=== PATIENT | female | born 1960 | race Caucasian/White ===

== ENCOUNTER 2018-04-21 19:19 | Inpatient (IN) ==
[2018-04-21] MEDS ORDERED: methylPREDNISolone SOD SUC 125 MG/2 ML VIAL IV STA (19:51)
[2018-04-21] MEDS ORDERED: ALBUTEROL/IPRATROPIUM 3 ML NEB RESP TX STA (19:51)
[2018-04-21] MEDS ORDERED: LEVOFLOXACIN INJ 750 MG in PREMIX 1 EACH IV STA (19:51)
[2018-04-21] MEDS ORDERED: ONDANSETRON 4 MG/2 ML VIAL IV STA (19:51)
[2018-04-21 20:16] LABS: Basophils # 0.1 10*3/uL (0.0-0.2); Basophils % 0.3 % (0.0-0.8); Hematocrit 38.6 VOL% (35.7-47.0); Hemoglobin 12.5 GM/DL (12.0-16.0); Immature Granulocytes % 5.3 %; Immature Granulocytes Absolute 2.34 #; Lymphocytes % 2.2 % (21.3-54.2); Mean Corpuscular HGB Conc 32.4 GM/DL (32-36); Mean Corpuscular Hemoglobin 32 PG (27-34); Mean Corpuscular Volume 99.7 FL (87-102); Mean Platelet Volume 11.6 FL (9.6-12.0); Monocytes # 1.6 10*3/uL (0.11-0.8); Monocytes % 3.7 % (1.7-12.7); Neutrophils # 39.4 10*3/uL (1.4-7.4); Neutrophils % 88.5 % (38.7-73.9); Platelet Count 308 T/CUMM (130-400); Red Blood Count 3.87 MC/CUMM (3.8-5.5); Red Cell Distribution Width 14.2 % (9.3-17.3)
[2018-04-21 20:20] LABS: White Blood Count 44.5 T/CUMM (4-12)
[2018-04-21 20:33] LABS: INR 1.2; PT Patient Result 12.8 SECS; Partial Thromboplastin Time 29.7 SECS (0-40)
[2018-04-21 20:34] LABS: Alanine Aminotransferase 37 U/L (13-56); Albumin 2.7 G/DL (3.4-5.0); Alkaline Phosphatase 162 U/L (45-117); Aspartate Amino Transferase 24 U/L (0-37); Blood Urea Nitrogen 20 MG/DL (7-18); Calcium 9.7 MG/DL (8.5-10.1); Glucose 97 MG/DL (74-106); Osmolality,Calculated 279.5 MOS/KG (273-304); Potassium 3.9 MMOL/L (3.5-5.1); Sodium 139 MMOL/L (136-145); Total Protein 7.5 G/DL (6.4-8.3); Troponin I < 0.015 NG/ML (0.00-0.045)
[2018-04-21 20:37] LABS: Apearance,Urine Slightly Hazy (Clear); Bacteria,Urine Moderate /HPF (Few); Bilirubin,Urine Negative (Negative); Blood, Urine Small mg/dL (Negative); Glucose,Urine (UA) Negative (Negative); Ketones,Urine 5 mg/dL (Negative); Mucus,Urine Few /LPF (Occasional); Nitrite,Urine Negative (Negative); Protein,Urine 100 MG/DL; Squamous Epithelial Cell,Urine Occasional /HPF (0-10); Urine Color Yellow (Yellow); Urine Specific Gravity 1.015 (1.001-1.035); Urine Urobilinogen < 2.0 EU/DL (0.2-1.0); WBC,Urine 5 /HPF (0-6)
[2018-04-21 20:40] LABS: Barbiturates Screen,Urine Negative (Negative); Benzodiazepines Screen,Urine Positive (Negative); Cannabinoid Screen,Urine Positive (Negative); Opiate Screen,Urine Negative (Negative); Phencyclidine Screen,Urine Negative (Negative)
[2018-04-21 21:18] LABS: Band Neutrophils 9 % (0-10); Lymphocytes 2 % (20-55); Metamyelocytes 2 %; Platelet Estimate Normal; Segmented Neutrophils 83 % (50-85); Total Cells Counted 100
[2018-04-21] MEDS ORDERED: NICOTINE 21 MG/24 HR PATCH TRANSDERM PRN (23:03)
[2018-04-21] MEDS ORDERED: ACETAMINOPHEN 325 MG TABLET PO PRN (23:03)
[2018-04-21] MEDS ORDERED: SODIUM CHLORIDE 0.9% 1,000 ML IV ONE (23:03)
[2018-04-21] MEDS ORDERED: NOREPINEPHRINE 8 MG in SODIUM CHLORIDE 0.9% 242 ML IV PRN (23:03)
[2018-04-21] MEDS ORDERED: diphenhydrAMINE CAP 25 MG CAPSULE PO PRN (23:03)
[2018-04-21] MEDS ORDERED: PROMETHAZINE 25 MG/1 ML VIAL IM PRN (23:03)
[2018-04-21] MEDS ORDERED: ALBUTEROL/IPRATROPIUM 3 ML NEB RESP TX PRN (23:03)
[2018-04-21] MEDS ORDERED: ONDANSETRON 4 MG/2 ML VIAL IV PRN (23:03)
[2018-04-21] MEDS ORDERED: ALBUTEROL 2.5 MG/3 ML NEB RESP TX PRN (23:03)
[2018-04-21] MEDS ORDERED: VANCOMYCIN 1,000 MG VIAL ONE (23:27)
[2018-04-21] MEDS ORDERED: HEPARIN DRIP 25,000 UNITS/500 ML PREMIX IV SCH (23:30)
[2018-04-22] MEDS ORDERED: VANCOMYCIN INJ 500 MG in SODIUM CHLORIDE 0.9% 100 ML IV SCH
[2018-04-22] MEDS: AZITHROMYCIN INJ 500 MG in SODIUM CHLORIDE 0.9% 250 ML IV SCH ×2 (00:10→23:57)
[2018-04-22] MEDS: PANTOPRAZOLE 40 MG VIAL IV SCH ×3 (00:22→20:12)
[2018-04-22 00:54] LABS: Apearance,Urine Slightly Hazy (Clear); Bilirubin,Urine Negative (Negative); Blood, Urine Small mg/dL (Negative); Glucose,Urine (UA) Negative (Negative); Hyaline Casts,Urine 3 /LPF (0-3); Ketones,Urine Negative (Negative); Mucus,Urine Few /LPF (Occasional); Nitrite,Urine Negative (Negative); Protein,Urine 100 MG/DL; RBC,Urine 4 /HPF (0-4); Renal Epithelial Cells,Urine Occasional /HPF (<1); Squamous Epithelial Cell,Urine Occasional /HPF (0-10); Urine Color Yellow (Yellow); Urine Specific Gravity 1.017 (1.001-1.035); Urine Urobilinogen < 2.0 EU/DL (0.2-1.0); WBC,Urine 4 /HPF (0-6)
[2018-04-22] MEDS: PIPERACILLIN/TAZOBACTAM 3,375 MG in SODIUM CHLORIDE 0.9% 100 ML IV SCH ×3 (03:05→17:22)
[2018-04-22] MEDS: SODIUM CHLORIDE 0.9% 1,000 ML IV SCH ×2 (03:45→14:12)
[2018-04-22 04:28] LABS: Basophils # 0.1 10*3/uL (0.0-0.2); Basophils % 0.3 % (0.0-0.8); Hematocrit 31.8 VOL% (35.7-47.0); Hemoglobin 10.5 GM/DL (12.0-16.0); Immature Granulocytes % 7.8 %; Immature Granulocytes Absolute 3.57 #; Lymphocytes # 1.1 10*3/uL (1.4-4.0); Lymphocytes % 2.5 % (21.3-54.2); Mean Corpuscular Hemoglobin 32 PG (27-34); Mean Corpuscular Volume 95.5 FL (87-102); Mean Platelet Volume 11.5 FL (9.6-12.0); Monocytes # 1.2 10*3/uL (0.11-0.8); Monocytes % 2.6 % (1.7-12.7); Neutrophils # 39.7 10*3/uL (1.4-7.4); Neutrophils % 86.8 % (38.7-73.9); Platelet Count 210 T/CUMM (130-400); Red Blood Count 3.33 MC/CUMM (3.8-5.5)
[2018-04-22 04:40] LABS: White Blood Count 45.7 T/CUMM (4-12)
[2018-04-22 04:56] LABS: Alanine Aminotransferase 27 U/L (13-56); Albumin 2.1 G/DL (3.4-5.0); Alkaline Phosphatase 120 U/L (45-117); Aspartate Amino Transferase 16 U/L (0-37); Blood Urea Nitrogen 21 MG/DL (7-18); Calcium 8.3 MG/DL (8.5-10.1); Glucose 120 MG/DL (74-106); Osmolality,Calculated 282.4 MOS/KG (273-304); Potassium 3.5 MMOL/L (3.5-5.1); Sodium 140 MMOL/L (136-145)
[2018-04-22 05:16] LABS: Band Neutrophils 14 % (0-10); Lymphocytes 3 % (20-55); Metamyelocytes 8 %; Ovalocytes 1+; Platelet Estimate Normal; Segmented Neutrophils 71 % (50-85); Total Cells Counted 100
[2018-04-22 05:53] LABS: Lactic Acid 2.9 MMOL/L (0.4-2.0)
[2018-04-22] MEDS ORDERED: MAGNESIUM SULF RIDER 4 GM in PREMIX 1 EACH IV PRN (06:40)
[2018-04-22] MEDS: MAGNESIUM SULF RIDER 2 GM in PREMIX 1 EACH IV PRN ×2 (07:11→09:12)
[2018-04-22] MEDS ORDERED: DESVENLAFAXINE 50 MG PO SCH (09:00)
[2018-04-22] MEDS ORDERED: [UNRECOGNIZED DRUG - OTHER] PO SCH (09:00)
[2018-04-22] MEDS ORDERED: NON-FORMULARY MEDICATION (Potassium [Potassium] 99 MG) PO SCH (09:00)
[2018-04-22 09:16] LABS: Allen Test Positive
[2018-04-22 09:21] LABS: ABG Base Excess -9.2 MMOL/L (-2.5-2.5); ABG HCO3 12.4 MMOL/L (20-26); ABG Oxygen Saturation 97.7 % (95-100); ABG PH 7.429 (7.35-7.45)
[2018-04-22 09:29] LABS: ABG PCO2 19.2 MM HG (35-48)
[2018-04-22] MEDS: levETIRAcetam 500 MG TABLET PO SCH ×2 (10:05→20:13)
[2018-04-22] MEDS: GABAPENTIN 300 MG CAPSULE PO SCH ×3 (10:05→20:12)
[2018-04-22] MEDS: DIVALPROEX 500 MG TABLET PO SCH ×2 (10:05→20:12)
[2018-04-22] MEDS: ALPRAZolam 0.25 MG TABLET PO SCH ×2 (10:06→20:12)
[2018-04-22] MEDS: LIDOCAINE 5% PATCH TRANSDERM SCH (10:14)
[2018-04-22] MEDS: MIRTAZAPINE 15 MG TABLET PO SCH (20:13)
[2018-04-22] MEDS: VANCOMYCIN INJ 750 MG in SODIUM CHLORIDE 0.9% 250 ML IV SCH (21:56)
[2018-04-23] MEDS: PIPERACILLIN/TAZOBACTAM 3,375 MG in SODIUM CHLORIDE 0.9% 100 ML IV SCH ×3 (02:27→17:01)
[2018-04-23 05:37] LABS: Basophils # 0.1 10*3/uL (0.0-0.2); Basophils % 0.3 % (0.0-0.8); Hematocrit 29.1 VOL% (35.7-47.0); Hemoglobin 9.5 GM/DL (12.0-16.0); Immature Granulocytes Absolute 3.57 #; Lymphocytes # 0.9 10*3/uL (1.4-4.0); Lymphocytes % 2.3 % (21.3-54.2); Mean Corpuscular HGB Conc 32.6 GM/DL (32-36); Mean Corpuscular Hemoglobin 32 PG (27-34); Mean Platelet Volume 12.3 FL (9.6-12.0); Monocytes # 0.9 10*3/uL (0.11-0.8); Monocytes % 2.3 % (1.7-12.7); Neutrophils % 86.1 % (38.7-73.9); Platelet Count 174 T/CUMM (130-400); Red Cell Distribution Width 14.4 % (9.3-17.3); White Blood Count 39.5 T/CUMM (4-12)
[2018-04-23 05:58] LABS: Albumin 1.8 G/DL (3.4-5.0); Calcium 8.3 MG/DL (8.5-10.1); Osmolality,Calculated 291.6 MOS/KG (273-304); Potassium 3.4 MMOL/L (3.5-5.1)
[2018-04-23 06:32] LABS: Band Neutrophils 7 % (0-10); Lymphocytes 1 % (20-55); Segmented Neutrophils 86 % (50-85); Total Cells Counted 100
[2018-04-23 06:33] LABS: Burr Cells Slight; Hypochromasia Slight; Macrocytosis Slight
[2018-04-23 06:34] LABS: Platelet Estimate Adequate
[2018-04-23] MEDS: SODIUM CHLORIDE 0.9% 1,000 ML IV SCH ×3 (07:33→23:16)
[2018-04-23] MEDS: levETIRAcetam 500 MG TABLET PO SCH ×2 (08:56→21:02)
[2018-04-23] MEDS: GABAPENTIN 300 MG CAPSULE PO SCH ×3 (08:57→21:02)
[2018-04-23] MEDS: DIVALPROEX 500 MG TABLET PO SCH ×2 (08:57→21:02)
[2018-04-23] MEDS: ALPRAZolam 0.25 MG TABLET PO SCH ×2 (08:57→21:03)
[2018-04-23] MEDS: LIDOCAINE 5% PATCH TRANSDERM SCH ×2 (08:57→14:02)
[2018-04-23] MEDS: PANTOPRAZOLE 40 MG VIAL IV SCH ×2 (08:57→21:00)
[2018-04-23] MEDS: POTASSIUM CHLORIDE 20 MEQ TABLET PO PRN ×3 (14:02→18:56)
[2018-04-23] MEDS: VANCOMYCIN INJ 750 MG in SODIUM CHLORIDE 0.9% 250 ML IV SCH ×2 (20:59→23:56)
[2018-04-23] MEDS: MIRTAZAPINE 15 MG TABLET PO SCH (21:02)
[2018-04-23] MEDS: AZITHROMYCIN INJ 500 MG in SODIUM CHLORIDE 0.9% 250 ML IV SCH (23:30)
[2018-04-24] MEDS: PIPERACILLIN/TAZOBACTAM 3,375 MG in SODIUM CHLORIDE 0.9% 100 ML IV SCH ×3 (01:03→17:00)
[2018-04-24 01:17] LABS: Basophils # 0.1 10*3/uL (0.0-0.2); Basophils % 0.2 % (0.0-0.8); Hematocrit 29.2 VOL% (35.7-47.0); Hemoglobin 9.8 GM/DL (12.0-16.0); Immature Granulocytes % 1.6 %; Immature Granulocytes Absolute 0.63 #; Lymphocytes # 1.9 10*3/uL (1.4-4.0); Lymphocytes % 4.8 % (21.3-54.2); Mean Corpuscular HGB Conc 33.6 GM/DL (32-36); Mean Corpuscular Hemoglobin 32 PG (27-34); Mean Corpuscular Volume 95.4 FL (87-102); Mean Platelet Volume 12.2 FL (9.6-12.0); Monocytes % 2.7 % (1.7-12.7); Neutrophils % 90.7 % (38.7-73.9); Platelet Count 170 T/CUMM (130-400); Red Blood Count 3.06 MC/CUMM (3.8-5.5); Red Cell Distribution Width 14.4 % (9.3-17.3); White Blood Count 38.6 T/CUMM (4-12)
[2018-04-24 01:45] LABS: Band Neutrophils 6 % (0-10); Lymphocytes 3 % (20-55); Platelet Estimate Normal; Segmented Neutrophils 89 % (50-85); Total Cells Counted 100
[2018-04-24 01:51] LABS: Albumin 1.8 G/DL (3.4-5.0); Bilirubin,Total 0.4 MG/DL (0.2-1.0); Calcium 8.2 MG/DL (8.5-10.1); Osmolality,Calculated 288.7 MOS/KG (273-304); Potassium 3.4 MMOL/L (3.5-5.1); Total Protein 5.4 G/DL (6.4-8.3)
[2018-04-24] MEDS: LIDOCAINE 5% PATCH TRANSDERM SCH ×2 (08:07→08:16)
[2018-04-24] MEDS: GABAPENTIN 300 MG CAPSULE PO SCH ×3 (08:08→20:06)
[2018-04-24] MEDS: POTASSIUM CHLORIDE 20 MEQ TABLET PO PRN ×3 (08:08→13:21)
[2018-04-24] MEDS: DIVALPROEX 500 MG TABLET PO SCH ×2 (08:09→20:06)
[2018-04-24] MEDS: levETIRAcetam 500 MG TABLET PO SCH ×2 (08:09→20:06)
[2018-04-24] MEDS: ALPRAZolam 0.25 MG TABLET PO SCH ×2 (08:09→20:06)
[2018-04-24] MEDS: PANTOPRAZOLE 40 MG VIAL IV SCH ×2 (08:44→20:05)
[2018-04-24] MEDS: SODIUM CHLORIDE 0.9% 1,000 ML IV SCH ×3 (10:48→22:39)
[2018-04-24] MEDS: VANCOMYCIN INJ 750 MG in SODIUM CHLORIDE 0.9% 250 ML IV SCH ×2 (12:15→23:10)
[2018-04-24] MEDS: MAGNESIUM SULF RIDER 2 GM in PREMIX 1 EACH IV PRN (13:21)
[2018-04-24] MEDS: MIRTAZAPINE 15 MG TABLET PO SCH (20:06)
[2018-04-25] MEDS: AZITHROMYCIN INJ 500 MG in SODIUM CHLORIDE 0.9% 250 ML IV SCH (00:56)
[2018-04-25] MEDS: PIPERACILLIN/TAZOBACTAM 3,375 MG in SODIUM CHLORIDE 0.9% 100 ML IV SCH ×2 (02:35→11:08)
[2018-04-25] MEDS: SODIUM CHLORIDE 0.9% 1,000 ML IV SCH ×3 (05:39→16:49)
[2018-04-25 06:18] LABS: Basophils # 0.1 10*3/uL (0.0-0.2); Basophils % 0.5 % (0.0-0.8); Eosinophils % 0.2 % (0.00-10.9); Hematocrit 33.5 VOL% (35.7-47.0); Hemoglobin 11.3 GM/DL (12.0-16.0); Immature Granulocytes % 4.9 %; Lymphocytes # 1.6 10*3/uL (1.4-4.0); Lymphocytes % 11.1 % (21.3-54.2); Mean Corpuscular HGB Conc 33.7 GM/DL (32-36); Mean Corpuscular Hemoglobin 32 PG (27-34); Mean Corpuscular Volume 94.9 FL (87-102); Mean Platelet Volume 12.3 FL (9.6-12.0); Monocytes # 1.4 10*3/uL (0.11-0.8); Monocytes % 9.6 % (1.7-12.7); NRBC # 0.02 10*3/uL; Neutrophils # 10.5 10*3/uL (1.4-7.4); Neutrophils % 73.7 % (38.7-73.9); Platelet Count 168 T/CUMM (130-400); Red Blood Count 3.53 MC/CUMM (3.8-5.5); Red Cell Distribution Width 14.2 % (9.3-17.3); White Blood Count 14.3 T/CUMM (4-12)
[2018-04-25 06:38] LABS: Calcium 8.7 MG/DL (8.5-10.1); Osmolality,Calculated 276.3 MOS/KG (273-304); Potassium 3.6 MMOL/L (3.5-5.1)
[2018-04-25 06:47] LABS: Band Neutrophils 1 % (0-10); Hypochromasia 1+; Lymphocytes 9 % (20-55); Ovalocytes Slight; Platelet Estimate Normal; Segmented Neutrophils 83 % (50-85); Total Cells Counted 100
[2018-04-25] MEDS: levETIRAcetam 500 MG TABLET PO SCH ×2 (08:59→20:56)
[2018-04-25] MEDS: DIVALPROEX 500 MG TABLET PO SCH ×2 (08:59→20:56)
[2018-04-25] MEDS: LIDOCAINE 5% PATCH TRANSDERM SCH ×2 (08:59)
[2018-04-25] MEDS: GABAPENTIN 300 MG CAPSULE PO SCH ×3 (08:59→20:57)
[2018-04-25] MEDS: ALPRAZolam 0.25 MG TABLET PO SCH ×2 (08:59→20:57)
[2018-04-25] MEDS: MAGNESIUM SULF RIDER 2 GM in PREMIX 1 EACH IV PRN (09:05)
[2018-04-25] MEDS: AZITHROMYCIN 250 MG TABLET PO SCH (09:15)
[2018-04-25] MEDS: cefTRIAXone 1,000 MG in SYRINGE 1 EACH IV SCH (16:49)
[2018-04-25] MEDS: MIRTAZAPINE 15 MG TABLET PO SCH (20:56)
[2018-04-25] MEDS: KETOROLAC 15 MG/1 ML VIAL IV PRN (20:57)
[2018-04-25] MEDS: POTASSIUM CHLORIDE 20 MEQ TABLET PO PRN (20:57)
[2018-04-26] MEDS: SODIUM CHLORIDE 0.9% 1,000 ML IV SCH ×3 (04:28→18:11)
[2018-04-26 06:07] LABS: Basophils # 0.1 10*3/uL (0.0-0.2); Basophils % 0.9 % (0.0-0.8); Eosinophils # 0.1 10*3/uL (0.0-0.87); Eosinophils % 0.9 % (0.00-10.9); Hematocrit 32.1 VOL% (35.7-47.0); Hemoglobin 10.7 GM/DL (12.0-16.0); Immature Granulocytes % 13.7 %; Immature Granulocytes Absolute 1.64 #; Lymphocytes # 1.8 10*3/uL (1.4-4.0); Lymphocytes % 14.8 % (21.3-54.2); Mean Corpuscular HGB Conc 33.3 GM/DL (32-36); Mean Corpuscular Hemoglobin 32 PG (27-34); Mean Corpuscular Volume 95.8 FL (87-102); Mean Platelet Volume 12.2 FL (9.6-12.0); Monocytes # 2.2 10*3/uL (0.11-0.8); Monocytes % 18.3 % (1.7-12.7); Neutrophils # 6.1 10*3/uL (1.4-7.4); Neutrophils % 51.4 % (38.7-73.9); Platelet Count 151 T/CUMM (130-400); Red Blood Count 3.35 MC/CUMM (3.8-5.5); Red Cell Distribution Width 14.3 % (9.3-17.3); White Blood Count 11.9 T/CUMM (4-12)
[2018-04-26 06:30] LABS: Band Neutrophils 4 % (0-10); Calcium 8.5 MG/DL (8.5-10.1); Eosinophils 2 % (0-10); Hypochromasia 1+; Lymphocytes 14 % (20-55); Myelocytes 1 %; Platelet Estimate Adequate; Potassium 4.2 MMOL/L (3.5-5.1); Segmented Neutrophils 62 % (50-85); Total Cells Counted 100
[2018-04-26 06:31] LABS: Ovalocytes Slight
[2018-04-26] MEDS: DIVALPROEX 500 MG TABLET PO SCH ×2 (08:31→20:56)
[2018-04-26] MEDS: GABAPENTIN 300 MG CAPSULE PO SCH ×3 (08:31→20:56)
[2018-04-26] MEDS: AZITHROMYCIN 250 MG TABLET PO SCH (08:31)
[2018-04-26] MEDS: LIDOCAINE 5% PATCH TRANSDERM SCH ×2 (08:31→12:19)
[2018-04-26] MEDS: levETIRAcetam 500 MG TABLET PO SCH ×2 (08:31→20:56)
[2018-04-26] MEDS: ALPRAZolam 0.25 MG TABLET PO SCH ×2 (08:31→20:57)
[2018-04-26 12:51] LABS: % Iron Saturation 10.5 % (18-50); Ferritin 172.6 ng/ml (8-252); Prealbumin 13.2 MG/DL (20-40)
[2018-04-26 14:56] LABS: Collection duration of stool Random h; Total Weight of Stool 25 g
[2018-04-26] MEDS: cefTRIAXone 1,000 MG in SYRINGE 1 EACH IV SCH (16:18)
[2018-04-26] MEDS: MIRTAZAPINE 15 MG TABLET PO SCH (20:56)
[2018-04-26] MEDS: KETOROLAC 15 MG/1 ML VIAL IV PRN (20:57)
[2018-04-27] MEDS: MAGNESIUM SULF RIDER 2 GM in PREMIX 1 EACH IV PRN (01:04)
[2018-04-27 05:41] LABS: Basophils % 0.4 % (0.0-0.8); Eosinophils # 0.2 10*3/uL (0.0-0.87); Eosinophils % 2.1 % (0.00-10.9); Hematocrit 31.5 VOL% (35.7-47.0); Immature Granulocytes % 24.6 %; Immature Granulocytes Absolute 2.71 #; Lymphocytes # 1.8 10*3/uL (1.4-4.0); Lymphocytes % 16.3 % (21.3-54.2); Mean Corpuscular HGB Conc 31.7 GM/DL (32-36); Mean Corpuscular Hemoglobin 31 PG (27-34); Mean Platelet Volume 12.1 FL (9.6-12.0); Monocytes # 1.6 10*3/uL (0.11-0.8); Monocytes % 14.4 % (1.7-12.7); NRBC # 0.02 10*3/uL; Neutrophils # 4.7 10*3/uL (1.4-7.4); Neutrophils % 42.2 % (38.7-73.9); Platelet Count 194 T/CUMM (130-400); Red Blood Count 3.28 MC/CUMM (3.8-5.5); Red Cell Distribution Width 14.3 % (9.3-17.3)
[2018-04-27 06:12] LABS: Calcium 8.9 MG/DL (8.5-10.1); Osmolality,Calculated 276.4 MOS/KG (273-304); Potassium 3.7 MMOL/L (3.5-5.1)
[2018-04-27 06:28] LABS: Band Neutrophils 10 % (0-10); Eosinophils 3 % (0-10); Lymphocytes 22 % (20-55); Metamyelocytes 7 %; Nucleated Red Blood Cells 1 (0-5); Segmented Neutrophils 45 % (50-85); Total Cells Counted 100
[2018-04-27 06:30] LABS: Platelet Estimate Normal
[2018-04-27 06:31] LABS: Hypochromasia Slight
[2018-04-27] MEDS: SODIUM CHLORIDE 0.9% 1,000 ML IV SCH (09:16)
[2018-04-27] MEDS ORDERED: LIDOCAINE 100 MG/5 ML SYRINGE ONE (12:35)
[2018-04-27] MEDS ORDERED: PROPOFOL 500 MG/50 ML BOTTLE IV ONE (12:35)
[2018-04-27 13:08] VITALS: BP 144/76
[2018-04-27] MEDS: DIVALPROEX 500 MG TABLET PO SCH (13:09)
[2018-04-27] MEDS: LIDOCAINE 5% PATCH TRANSDERM SCH (13:10)
[2018-04-27] MEDS: GABAPENTIN 300 MG CAPSULE PO SCH ×2 (13:10→16:16)
[2018-04-27] MEDS: ALPRAZolam 0.25 MG TABLET PO SCH (13:10)
[2018-04-27] MEDS: levETIRAcetam 500 MG TABLET PO SCH (13:10)
[2018-04-27] MEDS: cefTRIAXone 1,000 MG in SYRINGE 1 EACH IV SCH (16:16)
[2018-04-27] MEDS: AZITHROMYCIN 250 MG TABLET PO SCH (16:16)
[2018-04-28] MEDS ORDERED: INFLUENZA VIRUS VACCINE 0.5 ML SYRINGE IM ONE (09:00)
[2018-04-28 15:01] LABS: Adenovirus F40/41 Negative (Negative); Astrovirus Negative (Negative); Cryptosporidium species Negative (Negative); Cyclospora cayetanensis Negative (Negative); Entamoeba histolytica Negative (Negative); Enteropathogenic E.coli (EPEC) Negative (Negative); Enterotoxigenic E. coli (ETEC) Negative (Negative); Norovirus GI/GII Negative (Negative); Plesiomonas shigelloides Negative (Negative); Salmonella species Negative (Negative); Sapovirus Negative (Negative); Shiga toxin producing E. coli Negative (Negative); Shigella/Enteroinvasive E.coli Negative (Negative); Specimen Source STOOL; Vibrio cholerae Negative (Negative); Yersinia enterocolitica Negative (Negative)
[2018-04-29 23:06] LABS: IgA Serum (MAYO) 345 mg/dL (61 - 356)
[2018-05-02 05:56] LABS: Vitamin A, S 33.8 mcg/dL (32.5-78.0)
[2018-05-06 11:37] LABS: Tissue Transglutaminase IgA Ab < 1.2 U/mL
== END 2018-04-27 16:33 | disposition home or self-care (01) | DRG 871 ==
LOC: N.ED 19:19 → SUATTDRO 23:03 → N.EDINP 23:03 → N.ICU 23:31 → N.5E 04-22 14:20
PROVIDERS: ADMIT Internal Medicine Geriatric Medicine; ATTEND Internal Medicine

== ENCOUNTER 2020-04-25 16:13 | Inpatient (IN) ==
[2020-04-25 17:09] LABS: Basophils % 0.1 % (0.0-0.8); Eosinophils # 0.1 10*3/uL (0.0-0.87); Eosinophils % 0.2 % (0.00-10.9); Hematocrit 34.6 VOL% (35.7-47.0); Hemoglobin 11.9 GM/DL (12.0-16.0); Immature Granulocytes % 14.2 %; Immature Granulocytes Absolute 5.52 #; Lymphocytes # 1.7 10*3/uL (1.4-4.0); Lymphocytes % 4.5 % (21.3-54.2); Mean Corpuscular HGB Conc 34.4 GM/DL (32-36); Mean Corpuscular Volume 93.8 FL (87-102); Mean Platelet Volume 10.8 FL (9.6-12.0); Monocytes % 7.7 % (1.7-12.7); NRBC # 0.15 10*3/uL; Neutrophils % 73.3 % (38.7-73.9); Platelet Count 310 T/CUMM (130-400); Red Blood Count 3.69 MC/CUMM (3.8-5.5); Red Cell Distribution Width 14.2 % (9.3-17.3); White Blood Count 38.8 T/CUMM (4-12)
[2020-04-25 17:32] LABS: Alanine Aminotransferase 20 U/L (13-56); Albumin 1.6 G/DL (3.4-5.0); Alkaline Phosphatase 548 U/L (45-117); Aspartate Amino Transferase 18 U/L (0-37); Bilirubin,Total < 0.39 MG/DL (0.2-1.0); Blood Urea Nitrogen 24 MG/DL (7-18); Calcium 8.9 MG/DL (8.5-10.1); Estimated Glom Filtration Rate 73 ML/MIN; Glucose 101 MG/DL (74-106); Osmolality,Calculated 280.5 MOS/KG (273-304); Total Protein 6.8 G/DL (6.4-8.3)
[2020-04-25] MEDS ORDERED: AZITHROMYCIN 250 MG TABLET PO STA (17:43)
[2020-04-25] MEDS ORDERED: SODIUM CHLORIDE 0.9% 500 ML IV STA (17:43)
[2020-04-25] MEDS ORDERED: cefTRIAXone 1,000 MG in SODIUM CHLORIDE 0.9% 100 ML IV STA (17:43)
[2020-04-25 18:03] LABS: Band Neutrophils 3 % (0-10); Eosinophils 1 % (0-10); Hypochromasia 1+; Lymphocytes 6 % (20-55); Microcytosis 1+; Platelet Estimate Adequate; Segmented Neutrophils 85 % (50-85); Total Cells Counted 100
[2020-04-25] MEDS ORDERED: ONDANSETRON 4 MG/2 ML VIAL IV PRN (18:19)
[2020-04-25] MEDS ORDERED: POTASSIUM CHLORIDE 20 MEQ TABLET PO STA (18:19)
[2020-04-25] MEDS ORDERED: FROVATRIPTAN PO PRN (18:28)
[2020-04-25] MEDS ORDERED: SODIUM CHLORIDE 0.9% 1,000 ML IV ONE (18:33)
[2020-04-25] MEDS ORDERED: amLODIPine 5 MG TABLET PO STA (18:35)
[2020-04-25 18:44] LABS: INR 1.7; PT Patient Result 17.9 SECS (9.8-11.9)
[2020-04-25 18:59] LABS: Thyroid Stimulating Hormone 0.703 uIU/ml (0.358-3.74)
[2020-04-25 19:04] LABS: Ferritin 758.4 ng/ml (8-252)
[2020-04-25] MEDS: ALBUTEROL/IPRATROPIUM 3 ML NEB RESP TX SCH (19:14)
[2020-04-25] MEDS: SODIUM CHLORIDE 0.9% 1,000 ML IV SCH (20:29)
[2020-04-25] MEDS: PIPERACILLIN/TAZOBACTAM 3,375 MG in SODIUM CHLORIDE 0.9% 100 ML IV SCH (20:29)
[2020-04-25] MEDS ORDERED: POTASSIUM CHLORIDE 20 MEQ TABLET PO ONE (20:30)
[2020-04-25 20:41] LABS: Bacteria,Urine Many /HPF (Few); Bilirubin,Urine Negative (Negative); Blood, Urine Small mg/dL (Negative); Glucose,Urine (UA) Negative (Negative); Hyaline Casts,Urine 5 /LPF (0-3); Ketones,Urine Negative (Negative); Mucus,Urine Occasional /LPF (Occasional); Nitrite,Urine Positive (Negative); Protein,Urine 30 MG/DL; RBC,Urine 4 /HPF (0-4); Squamous Epithelial Cell,Urine Occasional /HPF (0-10); Urine Appearance CLEAR (Clear); Urine Color Yellow (Yellow); Urine Specific Gravity 1.021 (1.001-1.035); Urine Urobilinogen < 2.0 EU/DL (0.2-1.0); WBC,Urine 18 /HPF (0-6)
[2020-04-25] MEDS ORDERED: MIRTAZAPINE 15 MG TABLET PO SCH (21:00)
[2020-04-25] MEDS: ENOXAPARIN 40 MG/0.4 ML SYRINGE SUBCUT SCH (22:03)
[2020-04-25] MEDS: levETIRAcetam 500 MG TABLET PO SCH (22:15)
[2020-04-25] MEDS: DIVALPROEX 500 MG TABLET PO SCH (22:15)
[2020-04-25] MEDS: GABAPENTIN 300 MG CAPSULE PO SCH (22:15)
[2020-04-25] MEDS ORDERED: INFLUENZA VIRUS VACCINE 0.5 ML SYRINGE IM ONE (22:24)
[2020-04-26] MEDS: ALBUTEROL/IPRATROPIUM 3 ML NEB RESP TX SCH ×4 (01:38→19:24)
[2020-04-26] MEDS: PIPERACILLIN/TAZOBACTAM 3,375 MG in SODIUM CHLORIDE 0.9% 100 ML IV SCH ×3 (04:02→21:34)
[2020-04-26 04:12] LABS: Basophils % 0.1 % (0.0-0.8); Eosinophils # 0.3 10*3/uL (0.0-0.87); Eosinophils % 0.7 % (0.00-10.9); Hematocrit 30.6 VOL% (35.7-47.0); Hemoglobin 10.4 GM/DL (12.0-16.0); Immature Granulocytes % 17.5 %; Immature Granulocytes Absolute 6.53 #; Lymphocytes # 2.5 10*3/uL (1.4-4.0); Lymphocytes % 6.7 % (21.3-54.2); Mean Corpuscular Volume 96.2 FL (87-102); Mean Platelet Volume 10.6 FL (9.6-12.0); Monocytes % 7.2 % (1.7-12.7); NRBC # 0.16 10*3/uL; Neutrophils % 67.8 % (38.7-73.9); Platelet Count 273 T/CUMM (130-400); Red Blood Count 3.18 MC/CUMM (3.8-5.5); Red Cell Distribution Width 14.6 % (9.3-17.3); White Blood Count 37.3 T/CUMM (4-12)
[2020-04-26] MEDS: SODIUM CHLORIDE 0.9% 1,000 ML IV SCH ×3 (04:18→21:33)
[2020-04-26 04:33] LABS: Band Neutrophils 7 % (0-10); Hypochromasia Slight; Lymphocytes 6 % (20-55); Microcytosis Slight; Myelocytes 2 %; Nucleated Red Blood Cells 2 (0-5); Platelet Estimate Adequate; Segmented Neutrophils 79 % (50-85); Total Cells Counted 100
[2020-04-26 04:57] LABS: Albumin 1.2 G/DL (3.4-5.0); Bilirubin,Total 0.7 MG/DL (0.2-1.0); Calcium 8.1 MG/DL (8.5-10.1); Osmolality,Calculated 279.4 MOS/KG (273-304); Risk Ratio 7.9; Total Protein 5.6 G/DL (6.4-8.3); VLDL CHOLESTEROL 31.8 MG/DL
[2020-04-26] MEDS ORDERED: DESVENLAFAXINE 50 MG TABLET PO SCH (09:00)
[2020-04-26] MEDS: GABAPENTIN 300 MG CAPSULE PO SCH ×2 (09:18→21:36)
[2020-04-26] MEDS: levETIRAcetam 500 MG TABLET PO SCH ×2 (09:19→21:36)
[2020-04-26] MEDS: FERROUS SULFATE 325 MG TABLET PO SCH (09:19)
[2020-04-26] MEDS: DIVALPROEX 500 MG TABLET PO SCH ×2 (09:19→21:36)
[2020-04-26] MEDS: amLODIPine 5 MG TABLET PO SCH (09:21)
[2020-04-26] MEDS: VANCOMYCIN INJ 750 MG in SODIUM CHLORIDE 0.9% 250 ML IV SCH ×2 (10:12→21:36)
[2020-04-26] MEDS: ENOXAPARIN 40 MG/0.4 ML SYRINGE SUBCUT SCH (21:34)
[2020-04-27] MEDS: ALBUTEROL/IPRATROPIUM 3 ML NEB RESP TX SCH ×4 (01:45→19:26)
[2020-04-27] MEDS: SODIUM CHLORIDE 0.9% 1,000 ML IV SCH ×3 (04:41→20:31)
[2020-04-27] MEDS: PIPERACILLIN/TAZOBACTAM 3,375 MG in SODIUM CHLORIDE 0.9% 100 ML IV SCH ×4 (04:42→19:27)
[2020-04-27 06:34] LABS: Calcium 8.6 MG/DL (8.5-10.1); Osmolality,Calculated 273.5 MOS/KG (273-304)
[2020-04-27 06:41] LABS: Basophils % 0.1 % (0.0-0.8); Eosinophils # 0.3 10*3/uL (0.0-0.87); Hematocrit 32.3 VOL% (35.7-47.0); Hemoglobin 10.9 GM/DL (12.0-16.0); Immature Granulocytes % 21.5 %; Immature Granulocytes Absolute 5.28 #; Lymphocytes # 1.7 10*3/uL (1.4-4.0); Mean Corpuscular HGB Conc 33.7 GM/DL (32-36); Mean Corpuscular Volume 95.8 FL (87-102); Mean Platelet Volume 10.4 FL (9.6-12.0); NRBC # 0.09 10*3/uL; Neutrophils % 62.4 % (38.7-73.9); Platelet Count 272 T/CUMM (130-400); Red Blood Count 3.37 MC/CUMM (3.8-5.5); Red Cell Distribution Width 14.7 % (9.3-17.3); White Blood Count 24.6 T/CUMM (4-12)
[2020-04-27] MEDS: FERROUS SULFATE 325 MG TABLET PO SCH (09:13)
[2020-04-27] MEDS: DIVALPROEX 500 MG TABLET PO SCH ×2 (09:13→20:33)
[2020-04-27] MEDS: levETIRAcetam 500 MG TABLET PO SCH ×2 (09:13→20:33)
[2020-04-27] MEDS: GABAPENTIN 300 MG CAPSULE PO SCH ×2 (09:14→20:33)
[2020-04-27] MEDS: amLODIPine 5 MG TABLET PO SCH (09:16)
[2020-04-27 09:21] LABS: Anisocytosis 1+; Band Neutrophils 2 % (0-10); Eosinophils 2 % (0-10); Lymphocytes 8 % (20-55); Macrocytosis 1+; Metamyelocytes 7 %; Myelocytes 3 %; Platelet Estimate Normal; Polychromasia Few; Segmented Neutrophils 68 % (50-85); Total Cells Counted 100
[2020-04-27] MEDS: VANCOMYCIN INJ 750 MG in SODIUM CHLORIDE 0.9% 250 ML IV SCH ×2 (10:30→23:13)
[2020-04-27] MEDS ORDERED: guaiFENesin/DM ER 600-30 MG TABLET PO PRN (16:14)
[2020-04-27] MEDS: ENOXAPARIN 40 MG/0.4 ML SYRINGE SUBCUT SCH (20:33)
[2020-04-28] MEDS: ALBUTEROL/IPRATROPIUM 3 ML NEB RESP TX SCH ×4 (00:56→21:00)
[2020-04-28] MEDS: PIPERACILLIN/TAZOBACTAM 3,375 MG in SODIUM CHLORIDE 0.9% 100 ML IV SCH ×3 (03:04→21:15)
[2020-04-28] MEDS: SODIUM CHLORIDE 0.9% 1,000 ML IV SCH ×3 (03:42→23:07)
[2020-04-28 05:41] LABS: Basophils % 0.2 % (0.0-0.8); Eosinophils # 0.2 10*3/uL (0.0-0.87); Eosinophils % 1.1 % (0.00-10.9); Hematocrit 28.4 VOL% (35.7-47.0); Hemoglobin 9.7 GM/DL (12.0-16.0); Immature Granulocytes % 24.1 %; Immature Granulocytes Absolute 4.68 #; Lymphocytes # 1.9 10*3/uL (1.4-4.0); Lymphocytes % 9.7 % (21.3-54.2); Mean Corpuscular HGB Conc 34.2 GM/DL (32-36); Mean Corpuscular Volume 94.7 FL (87-102); Mean Platelet Volume 10.4 FL (9.6-12.0); Monocytes % 9.1 % (1.7-12.7); NRBC # 0.06 10*3/uL; Neutrophils % 55.8 % (38.7-73.9); Platelet Count 250 T/CUMM (130-400); Red Cell Distribution Width 14.5 % (9.3-17.3); White Blood Count 19.4 T/CUMM (4-12)
[2020-04-28 06:44] LABS: Atypical Lymphocytes Few; Band Neutrophils 1 % (0-10); Lymphocytes 7 % (20-55); Metamyelocytes 4 %; Myelocytes 2 %; Segmented Neutrophils 78 % (50-85); Total Cells Counted 100
[2020-04-28 06:45] LABS: Ovalocytes Few; Platelet Estimate Normal; Polychromasia Slight
[2020-04-28] MEDS: levETIRAcetam 500 MG TABLET PO SCH ×2 (09:13→21:17)
[2020-04-28] MEDS: FERROUS SULFATE 325 MG TABLET PO SCH (09:13)
[2020-04-28] MEDS: GABAPENTIN 300 MG CAPSULE PO SCH ×2 (09:13→21:17)
[2020-04-28] MEDS: amLODIPine 5 MG TABLET PO SCH (09:14)
[2020-04-28] MEDS: DIVALPROEX 500 MG TABLET PO SCH ×2 (09:14→21:17)
[2020-04-28] MEDS: VANCOMYCIN INJ 750 MG in SODIUM CHLORIDE 0.9% 250 ML IV SCH ×2 (09:14→23:08)
[2020-04-28] MEDS: ENOXAPARIN 40 MG/0.4 ML SYRINGE SUBCUT SCH (21:16)
[2020-04-29] MEDS: ALBUTEROL/IPRATROPIUM 3 ML NEB RESP TX SCH ×2 (03:06→07:37)
[2020-04-29] MEDS: PIPERACILLIN/TAZOBACTAM 3,375 MG in SODIUM CHLORIDE 0.9% 100 ML IV SCH ×2 (04:51→13:06)
[2020-04-29] MEDS: SODIUM CHLORIDE 0.9% 1,000 ML IV SCH ×2 (05:15→13:06)
[2020-04-29 06:08] LABS: Basophils # 0.1 10*3/uL (0.0-0.2); Basophils % 0.3 % (0.0-0.8); Eosinophils # 0.2 10*3/uL (0.0-0.87); Eosinophils % 1.2 % (0.00-10.9); Hematocrit 27.9 VOL% (35.7-47.0); Hemoglobin 9.2 GM/DL (12.0-16.0); Immature Granulocytes % 21.9 %; Immature Granulocytes Absolute 4.16 #; Lymphocytes # 1.8 10*3/uL (1.4-4.0); Lymphocytes % 9.5 % (21.3-54.2); Mean Corpuscular Volume 96.9 FL (87-102); Mean Platelet Volume 10.7 FL (9.6-12.0); Monocytes % 9.7 % (1.7-12.7); NRBC # 0.04 10*3/uL; Neutrophils % 57.4 % (38.7-73.9); Platelet Count 265 T/CUMM (130-400); Red Blood Count 2.88 MC/CUMM (3.8-5.5); Red Cell Distribution Width 14.7 % (9.3-17.3)
[2020-04-29 06:33] LABS: Calcium 8.7 MG/DL (8.5-10.1); Osmolality,Calculated 277.1 MOS/KG (273-304)
[2020-04-29 07:21] LABS: Band Neutrophils 6 % (0-10); Eosinophils 3 % (0-10); Lymphocytes 8 % (20-55); Metamyelocytes 4 %; Myelocytes 3 %; Segmented Neutrophils 64 % (50-85); Total Cells Counted 100
[2020-04-29 07:22] LABS: Hypochromasia 1+
[2020-04-29 07:23] LABS: Anisocytosis 1+; Macrocytosis 1+; Platelet Estimate Normal
[2020-04-29] MEDS: amLODIPine 5 MG TABLET PO SCH (08:14)
[2020-04-29] MEDS: GABAPENTIN 300 MG CAPSULE PO SCH (08:15)
[2020-04-29] MEDS: DIVALPROEX 500 MG TABLET PO SCH (08:15)
[2020-04-29] MEDS: FERROUS SULFATE 325 MG TABLET PO SCH (08:15)
[2020-04-29] MEDS: levETIRAcetam 500 MG TABLET PO SCH (08:15)
[2020-04-29] MEDS: VANCOMYCIN INJ 750 MG in SODIUM CHLORIDE 0.9% 250 ML IV SCH (08:47)
[2020-04-29 12:08] VITALS: BP 138/56
[2020-04-29] MEDS ORDERED: POTASSIUM CHLORIDE 20 MEQ TABLET PO ONE (12:30)
[2020-05-02] MEDS ORDERED: PNEUMOCOCCAL VACCINE (23 VALENT) 0.5 ML VIAL IM ONE (09:00)
== END 2020-04-29 14:26 | disposition home or self-care (01) | DRG 193 ==
LOC: N.ED 16:13 → N.EDINP 18:18 → SUATTDRO 18:18 → N.CC 19:54 → N.ICU 20:32 → N.3E 04-26 13:49
PROVIDERS: ADMIT Internal Medicine; ATTEND Internal Medicine

== ENCOUNTER 2021-08-15 16:24 | Observation (INO) ==
[2021-08-15 16:57] LABS: Basophils # 0.1 10*3/uL (0.0-0.2); Basophils % 0.3 % (0.0-0.8); Eosinophils # 0.1 10*3/uL (0.0-0.87); Eosinophils % 0.3 % (0.00-10.9); Hematocrit 42.2 VOL% (35.7-47.0); Hemoglobin 13.4 GM/DL (12.0-16.0); Immature Granulocytes % 0.9 %; Immature Granulocytes Absolute 0.19 #; Lymphocytes # 1.6 10*3/uL (1.4-4.0); Mean Corpuscular HGB Conc 31.8 GM/DL (32-36); Mean Corpuscular Volume 100.2 FL (87-102); Mean Platelet Volume 11.6 FL (9.6-12.0); Monocytes % 6.3 % (1.7-12.7); Neutrophils % 85.2 % (38.7-73.9); Platelet Count 318 T/CUMM (130-400); Red Blood Count 4.21 MC/CUMM (3.8-5.5); Red Cell Distribution Width 14.6 % (9.3-17.3); White Blood Count 22.3 T/CUMM (4-12)
[2021-08-15] MEDS ORDERED: cloNIDine 0.1 MG TABLET PO STA (17:19)
[2021-08-15 17:22] LABS: Alanine Aminotransferase 48 U/L (13-56); Albumin 3.3 G/DL (3.4-5.0); Alkaline Phosphatase 191 U/L (45-117); Aspartate Amino Transferase 42 U/L (0-37); Bilirubin,Total < 0.39 MG/DL (0.20-1.00); Blood Urea Nitrogen 17 MG/DL (7-18); Calcium 9.7 MG/DL (8.5-10.1); Carbon Dioxide 21 MMOL/L (21-32); Estimated Glom Filtration Rate 44 ML/MIN; Glucose 86 MG/DL (74-106); Osmolality,Calculated 275.7 MOS/KG (273-304); Potassium 3.8 MMOL/L (3.5-5.1); Sodium 138 MMOL/L (136-145)
[2021-08-15 17:52] LABS: Acanthocytes 1+; Eosinophils 1 % (0-10); Lymphocytes 5 % (20-55); Macrocytosis 2+; Segmented Neutrophils 90 % (50-85); Total Cells Counted 100
[2021-08-15 17:53] LABS: Platelet Estimate Increased; Toxic Granulation 1+
[2021-08-15 18:05] LABS: Bilirubin,Urine Negative (Negative); Blood, Urine Small mg/dL (Negative); Glucose,Urine (UA) Negative (Negative); Ketones,Urine Negative (Negative); Nitrite,Urine Negative (Negative); Protein,Urine Negative; Urine Appearance Clear (Clear); Urine Color Straw (Yellow); Urine Specific Gravity 1.015 (1.001-1.035); Urine Urobilinogen 0.2 EU/DL (<2.0); Urine pH 6.5 (4.5-8.0)
[2021-08-15 18:07] LABS: Bacteria,Urine Occasional /HPF (Few); RBC,Urine 2 /HPF (0-4)
[2021-08-15] MEDS ORDERED: PIPERACILLIN/TAZOBACTAM 3,375 MG in SODIUM CHLORIDE 0.9% 100 ML IV STA (19:41)
[2021-08-15] MEDS ORDERED: ONDANSETRON 4 MG/2 ML VIAL IV PRN (20:50)
[2021-08-15] MEDS ORDERED: GLUCAGON 1 MG VIAL IM PRN (20:50)
[2021-08-15] MEDS ORDERED: guaiFENesin/DM ER 600-30 MG TABLET PO PRN (20:50)
[2021-08-15] MEDS ORDERED: hydrALAZINE 20 MG/1 ML VIAL IV PRN (20:50)
[2021-08-15] MEDS ORDERED: ACETAMINOPHEN 325 MG TABLET PO PRN (20:50)
[2021-08-15] MEDS ORDERED: SIMETHICONE CHEW 125 MG TABLET PO PRN (20:50)
[2021-08-15] MEDS ORDERED: cefTRIAXone 1,000 MG in SODIUM CHLORIDE 0.9% 100 ML IV SCH (21:00)
[2021-08-15] MEDS ORDERED: AZITHROMYCIN INJ 500 MG in SODIUM CHLORIDE 0.9% 250 ML IV SCH (21:00)
[2021-08-15] MEDS ORDERED: DEXTROSE 10% 250 ML BAG IV PRN (21:02)
[2021-08-15] MEDS: DOCUSATE SODIUM 100 MG CAPSULE PO SCH (21:09)
[2021-08-15] MEDS: ENOXAPARIN 40 MG/0.4 ML SYRINGE SUBCUT SCH (21:25)
[2021-08-15] MEDS ORDERED: FROVATRIPTAN PO PRN (23:19)
[2021-08-15] MEDS ORDERED: DIVALPROEX 500 MG TABLET PO ONE (23:30)
[2021-08-15] MEDS ORDERED: ALBUTEROL 2.5 MG/3 ML NEB RESP TX PRN (23:30)
[2021-08-16] MEDS: MIRTAZAPINE 15 MG TABLET PO SCH ×2 (00:21→22:35)
[2021-08-16] MEDS: MEGESTROL 40 MG TABLET PO SCH ×3 (00:21→22:35)
[2021-08-16] MEDS ORDERED: INFLUENZA VIRUS VACCINE 0.5 ML SYRINGE IM ONE (00:44)
[2021-08-16] MEDS: ALBUTEROL/IPRATROPIUM 3 ML NEB RESP TX SCH ×4 (02:19→19:07)
[2021-08-16] MEDS: PIPERACILLIN/TAZOBACTAM 3,375 MG in SODIUM CHLORIDE 0.9% 100 ML IV SCH ×3 (05:15→22:38)
[2021-08-16 07:25] LABS: Basophils # 0.1 10*3/uL (0.0-0.2); Basophils % 0.7 % (0.0-0.8); Eosinophils # 0.2 10*3/uL (0.0-0.87); Eosinophils % 1.1 % (0.00-10.9); Hematocrit 33.9 VOL% (35.7-47.0); Hemoglobin 10.8 GM/DL (12.0-16.0); Immature Granulocytes % 0.6 %; Lymphocytes % 12.2 % (21.3-54.2); Mean Corpuscular HGB Conc 31.9 GM/DL (32-36); Mean Corpuscular Volume 99.7 FL (87-102); Mean Platelet Volume 12.4 FL (9.6-12.0); Monocytes % 7.2 % (1.7-12.7); Neutrophils % 78.2 % (38.7-73.9); Platelet Count 261 T/CUMM (130-400); Red Cell Distribution Width 14.6 % (9.3-17.3)
[2021-08-16 07:43] LABS: Osmolality,Calculated 280.4 MOS/KG (273-304); Potassium 3.5 MMOL/L (3.5-5.1); Risk Ratio 3.06; Thyroid Stimulating Hormone 1.05 uIU/ml (0.358-3.74); VLDL Cholesterol 18.8 MG/DL
[2021-08-16] MEDS: lisinopriL 10 MG TABLET PO SCH (11:10)
[2021-08-16] MEDS: DOCUSATE SODIUM 100 MG CAPSULE PO SCH ×2 (11:10→22:35)
[2021-08-16] MEDS: DIVALPROEX 250 MG TABLET PO SCH ×2 (11:11→22:35)
[2021-08-16] MEDS: PANTOPRAZOLE 40 MG TABLET PO SCH (11:11)
[2021-08-16] MEDS: busPIRone 5 MG TABLET PO SCH ×2 (11:11→22:35)
[2021-08-16] MEDS: DESVENLAFAXINE 50 MG TABLET PO SCH (11:11)
[2021-08-16] MEDS: GABAPENTIN 300 MG CAPSULE PO SCH ×3 (11:11→22:35)
[2021-08-16] MEDS: DICLOFENAC 1% GEL 100 GM TUBE TOP SCH ×4 (11:35→22:46)
[2021-08-16] MEDS: VILANTEROL INH SCH ×2 (11:35→22:46)
[2021-08-16] MEDS: UMECLIDINIUM INH SCH ×2 (11:35→22:46)
[2021-08-16] MEDS: levETIRAcetam 500 MG TABLET PO SCH ×2 (13:27→22:35)
[2021-08-16] MEDS: ENOXAPARIN 40 MG/0.4 ML SYRINGE SUBCUT SCH (22:35)
[2021-08-17] MEDS: ALBUTEROL/IPRATROPIUM 3 ML NEB RESP TX SCH ×4 (00:16→19:00)
[2021-08-17] MEDS: PIPERACILLIN/TAZOBACTAM 3,375 MG in SODIUM CHLORIDE 0.9% 100 ML IV SCH ×3 (03:56→21:31)
[2021-08-17] MEDS: PANTOPRAZOLE 40 MG TABLET PO SCH (09:06)
[2021-08-17] MEDS: busPIRone 5 MG TABLET PO SCH ×2 (09:06→21:30)
[2021-08-17] MEDS: lisinopriL 10 MG TABLET PO SCH (09:06)
[2021-08-17] MEDS: DESVENLAFAXINE 50 MG TABLET PO SCH (09:06)
[2021-08-17] MEDS: MULTIVITAMIN (CENTRUM) TABLET PO SCH (09:06)
[2021-08-17] MEDS: DIVALPROEX 250 MG TABLET PO SCH ×2 (09:06→21:30)
[2021-08-17] MEDS: MEGESTROL 40 MG TABLET PO SCH ×2 (09:06→21:30)
[2021-08-17] MEDS: DOCUSATE SODIUM 100 MG CAPSULE PO SCH ×2 (09:06→21:36)
[2021-08-17] MEDS: levETIRAcetam 500 MG TABLET PO SCH ×2 (09:07→21:30)
[2021-08-17] MEDS: VILANTEROL INH SCH ×2 (09:07→21:36)
[2021-08-17] MEDS: UMECLIDINIUM INH SCH ×2 (09:07→21:36)
[2021-08-17] MEDS: GABAPENTIN 300 MG CAPSULE PO SCH ×3 (09:07→21:30)
[2021-08-17] MEDS: DICLOFENAC 1% GEL 100 GM TUBE TOP SCH ×4 (09:08→21:36)
[2021-08-17] MEDS: MIRTAZAPINE 15 MG TABLET PO SCH (21:30)
[2021-08-17] MEDS: ENOXAPARIN 40 MG/0.4 ML SYRINGE SUBCUT SCH (21:31)
[2021-08-18] MEDS: ALBUTEROL/IPRATROPIUM 3 ML NEB RESP TX SCH ×3 (00:10→13:05)
[2021-08-18] MEDS: PIPERACILLIN/TAZOBACTAM 3,375 MG in SODIUM CHLORIDE 0.9% 100 ML IV SCH (04:30)
[2021-08-18 05:49] LABS: Basophils # 0.1 10*3/uL (0.0-0.2); Basophils % 0.5 % (0.0-0.8); Eosinophils # 0.3 10*3/uL (0.0-0.87); Eosinophils % 2.9 % (0.00-10.9); Hematocrit 31.8 VOL% (35.7-47.0); Hemoglobin 10.2 GM/DL (12.0-16.0); Immature Granulocytes % 0.5 %; Immature Granulocytes Absolute 0.05 #; Lymphocytes # 1.6 10*3/uL (1.4-4.0); Lymphocytes % 16.2 % (21.3-54.2); Mean Corpuscular HGB Conc 32.1 GM/DL (32-36); Mean Corpuscular Volume 100.6 FL (87-102); Mean Platelet Volume 11.9 FL (9.6-12.0); Monocytes % 7.7 % (1.7-12.7); Neutrophils % 72.2 % (38.7-73.9); Platelet Count 263 T/CUMM (130-400); Red Blood Count 3.16 MC/CUMM (3.8-5.5); Red Cell Distribution Width 14.3 % (9.3-17.3); White Blood Count 9.9 T/CUMM (4-12)
[2021-08-18 06:07] LABS: Calcium 8.7 MG/DL (8.5-10.1); Osmolality,Calculated 285.1 MOS/KG (273-304); Potassium 4.3 MMOL/L (3.5-5.1)
[2021-08-18] MEDS: DESVENLAFAXINE 50 MG TABLET PO SCH (10:51)
[2021-08-18] MEDS: DOCUSATE SODIUM 100 MG CAPSULE PO SCH (10:51)
[2021-08-18] MEDS: MULTIVITAMIN (CENTRUM) TABLET PO SCH (10:52)
[2021-08-18] MEDS: DIVALPROEX 250 MG TABLET PO SCH (10:52)
[2021-08-18] MEDS: PANTOPRAZOLE 40 MG TABLET PO SCH (10:52)
[2021-08-18] MEDS: MEGESTROL 40 MG TABLET PO SCH (10:52)
[2021-08-18] MEDS: GABAPENTIN 300 MG CAPSULE PO SCH (10:52)
[2021-08-18] MEDS: levETIRAcetam 500 MG TABLET PO SCH (10:52)
[2021-08-18] MEDS: busPIRone 5 MG TABLET PO SCH (10:52)
[2021-08-18] MEDS: lisinopriL 10 MG TABLET PO SCH (10:53)
[2021-08-18 14:45] VITALS: BP 145/55
== END 2021-08-18 14:16 | disposition home or self-care (01) ==
LOC: EDBD → EDUNIT# → N.ED 16:24 → N.EDINP 16:24 → SUATTDRO 20:50 → N.EDINP 23:06 → N.5E 23:57
PROVIDERS: ADMIT Internal Medicine; ATTEND Internal Medicine Geriatric Medicine

== ENCOUNTER 2021-11-12 05:17 | Inpatient (IN) ==
[2021-11-12] MEDS ORDERED: ETOMIDATE 20 MG/10 ML VIAL IV ONE (05:20)
[2021-11-12] MEDS ORDERED: VECURONIUM 10 MG VIAL IV ONE (05:20)
[2021-11-12] MEDS ORDERED: LORazepam 2 MG/1 ML VIAL ONE (05:24)
[2021-11-12] MEDS ORDERED: ETOMIDATE 20 MG/10 ML VIAL IV STA (05:25)
[2021-11-12] MEDS ORDERED: VECURONIUM 10 MG VIAL IV STA (05:25)
[2021-11-12] MEDS ORDERED: hydrALAZINE 20 MG/1 ML VIAL ONE (05:31)
[2021-11-12] MEDS ORDERED: levETIRAcetam 500 MG/5 ML VIAL IV ONE (05:31)
[2021-11-12] MEDS ORDERED: LORazepam 2 MG/1 ML VIAL IV STA (05:37)
[2021-11-12] MEDS ORDERED: SODIUM CHLORIDE 0.9% 500 ML IV STA (05:37)
[2021-11-12] MEDS ORDERED: niCARdipine 25 MG/10 ML VIAL IV ONE (05:56)
[2021-11-12 05:58] LABS: ABG Base Excess -22.8 MMOL/L (-2.5-2.5); ABG PCO2 50.2 MM HG (35-48); ABG TCO2 10.5 MMOL/L (23-27)
[2021-11-12 05:59] LABS: ABG PH 6.944 (7.35-7.45)
[2021-11-12] MEDS ORDERED: SODIUM BICARBONATE 50 MEQ/50 ML VIAL IV STA (06:00)
[2021-11-12] MEDS ORDERED: niCARdipine INJ 25 MG in SODIUM CHLORIDE 0.9% 240 ML IV PRN (06:00)
[2021-11-12] MEDS ORDERED: SODIUM BICARBONATE 50 MEQ/50 ML VIAL IV ONE (06:00)
[2021-11-12 06:08] LABS: Basophils # 0.1 10*3/uL (0.0-0.2); Basophils % 0.4 % (0.0-0.8); Eosinophils # 0.1 10*3/uL (0.0-0.87); Eosinophils % 0.4 % (0.00-10.9); Hematocrit 46.7 VOL% (35.7-47.0); Hemoglobin 14.3 GM/DL (12.0-16.0); Immature Granulocytes % 2.7 %; Immature Granulocytes Absolute 0.57 #; Lymphocytes # 3.5 10*3/uL (1.4-4.0); Lymphocytes % 16.2 % (21.3-54.2); Mean Corpuscular HGB Conc 30.6 GM/DL (32-36); Mean Corpuscular Volume 99.8 FL (87-102); Mean Platelet Volume 10.9 FL (9.6-12.0); Monocytes # 1.4 10*3/uL (0.11-0.8); Monocytes % 6.4 % (1.7-12.7); Neutrophils % 73.9 % (38.7-73.9); Platelet Count 405 T/CUMM (130-400); Red Blood Count 4.68 MC/CUMM (3.8-5.5); Red Cell Distribution Width 14.7 % (9.3-17.3); White Blood Count 21.2 T/CUMM (4-12)
[2021-11-12] MEDS ORDERED: LACOSAMIDE INJ 200 MG in SODIUM CHLORIDE 0.9% 50 ML IV STA (06:17)
[2021-11-12 06:32] LABS: Lymphocytes 23 % (20-55); Total Cells Counted 100
[2021-11-12 06:34] LABS: Platelet Estimate Increased
[2021-11-12 06:35] LABS: Alanine Aminotransferase 27 U/L (13-56); Albumin 3.6 G/DL (3.4-5.0); Alkaline Phosphatase 125 U/L (45-117); Aspartate Amino Transferase 26 U/L (0-37); Bilirubin,Total < 0.39 MG/DL (0.20-1.00); Blood Urea Nitrogen 20 MG/DL (7-18); Calcium 9.9 MG/DL (8.5-10.1); Carbon Dioxide 12 MMOL/L (21-32); Chloride 106 MMOL/L (98-107); Glucose 175 MG/DL (74-106); Osmolality,Calculated 276.1 MOS/KG (273-304); Potassium 3.7 MMOL/L (3.5-5.1); Sodium 135 MMOL/L (136-145); Total Protein 8.1 G/DL (6.4-8.2)
[2021-11-12 06:41] LABS: Bilirubin,Urine Negative (Negative); Blood, Urine Trace mg/dL (Negative); Glucose,Urine (UA) Negative (Negative); Hyaline Casts,Urine 9 /LPF (0-3); Ketones,Urine Negative (Negative); Mucus,Urine Occasional /LPF (Occasional); Nitrite,Urine Negative (Negative); Protein,Urine 100 mg/dL (Negative); Urine Appearance Clear (Clear); Urine Color Yellow (Yellow); Urine Urobilinogen 0.2 eU/dL (<2.0); Urine pH 5.5 (4.5-8.0)
[2021-11-12 06:48] LABS: Barbiturates Screen,Urine Negative (Negative); Benzodiazepines Screen,Urine Negative (Negative); Cannabinoid Screen,Urine Positive (Negative); Opiate Screen,Urine Negative (Negative); Phencyclidine Screen,Urine Negative (Negative)
[2021-11-12] MEDS ORDERED: ALBUTEROL 2.5 MG/3 ML NEB RESP TX PRN (08:19)
[2021-11-12] MEDS ORDERED: ONDANSETRON 4 MG/2 ML VIAL IV PRN (08:20)
[2021-11-12] MEDS: ENOXAPARIN 40 MG/0.4 ML SYRINGE SUBCUT SCH (08:41)
[2021-11-12] MEDS: PANTOPRAZOLE 40 MG VIAL IV SCH (08:44)
[2021-11-12] MEDS: SODIUM CHLORIDE 0.9% 1,000 ML IV SCH ×3 (08:44→19:16)
[2021-11-12] MEDS: INSULIN LISPRO 100 UNIT/ML SUBCUT SCH ×2 (12:59→17:49)
[2021-11-12 13:10] LABS: Arterial Base Excess iSTAT 1 MMOL/L (-2.5-2.5); Arterial Bicarbonate iSTAT 25.6 MMOL/L (20-26); Arterial O2 Saturation iSTAT 100 % (95-100); Arterial PCO2 iSTAT 39 MM HG (35-48); Arterial PO2 iSTAT 334 MM HG (80-95); Arterial Total CO2 iSTAT 27 MMO/L (23-27); Arterial pH iSTAT 7.421 (7.35-7.45)
[2021-11-12] MEDS ORDERED: GLUCAGON 1 MG VIAL IM PRN (17:26)
[2021-11-12] MEDS ORDERED: DEXTROSE 50% 25 GM/50 ML SYRINGE IV ONE ×2 (17:27→18:00)
[2021-11-12] MEDS ORDERED: DEXTROSE 10% 250 ML BAG IV PRN (17:30)
[2021-11-13] MEDS: INSULIN LISPRO 100 UNIT/ML SUBCUT SCH ×4 (00:23→17:09)
[2021-11-13] MEDS ORDERED: SODIUM CHLORIDE 0.9% 250 ML IV ONE (03:00)
[2021-11-13 04:10] LABS: Arterial Base Excess iSTAT -4 MMOL/L (-2.5-2.5); Arterial Bicarbonate iSTAT 20.4 MMOL/L (20-26); Arterial O2 Saturation iSTAT 100 % (95-100); Arterial PCO2 iSTAT 34 MM HG (35-48); Arterial PO2 iSTAT 194 MM HG (80-95); Arterial Total CO2 iSTAT 21 MMO/L (23-27); Arterial pH iSTAT 7.387 (7.35-7.45)
[2021-11-13 04:14] LABS: Basophils # 0.1 10*3/uL (0.0-0.2); Basophils % 0.4 % (0.0-0.8); Eosinophils % 0.2 % (0.00-10.9); Hematocrit 41.1 VOL% (35.7-47.0); Immature Granulocytes % 0.8 %; Immature Granulocytes Absolute 0.15 #; Lymphocytes # 1.5 10*3/uL (1.4-4.0); Lymphocytes % 8.1 % (21.3-54.2); Mean Corpuscular HGB Conc 31.6 GM/DL (32-36); Mean Platelet Volume 11.3 FL (9.6-12.0); Monocytes # 2.3 10*3/uL (0.11-0.8); Monocytes % 12.8 % (1.7-12.7); Neutrophils % 77.7 % (38.7-73.9); Platelet Count 289 T/CUMM (130-400); Red Blood Count 4.28 MC/CUMM (3.8-5.5); Red Cell Distribution Width 15.2 % (9.3-17.3); White Blood Count 17.9 T/CUMM (4-12)
[2021-11-13] MEDS: SODIUM CHLORIDE 0.9% 1,000 ML IV SCH ×3 (04:23→14:40)
[2021-11-13 05:00] LABS: Alanine Aminotransferase 49 U/L (13-56); Albumin 2.2 G/DL (3.4-5.0); Alkaline Phosphatase 90 U/L (45-117); Aspartate Amino Transferase 62 U/L (0-37); Bilirubin,Total < 0.39 MG/DL (0.20-1.00); Blood Urea Nitrogen 23 MG/DL (7-18); Calcium 8.2 MG/DL (8.5-10.1); Carbon Dioxide 18 MMOL/L (21-32); Chloride 113 MMOL/L (98-107); Cholesterol 109 MG/DL (50-200); Glucose 87 MG/DL (74-106); HDL Cholesterol 37 MG/DL (40-60); Osmolality,Calculated 281.4 MOS/KG (273-304); Potassium 4.1 MMOL/L (3.5-5.1); Risk Ratio 2.95; Sodium 140 MMOL/L (136-145); Total Protein 5.3 G/DL (6.4-8.2); Triglycerides 129 MG/DL (2-150); VLDL Cholesterol 25.8 MG/DL
[2021-11-13] MEDS: PANTOPRAZOLE 40 MG VIAL IV SCH (07:58)
[2021-11-13] MEDS: ENOXAPARIN 40 MG/0.4 ML SYRINGE SUBCUT SCH (08:01)
[2021-11-13] MEDS ORDERED: LORazepam 2 MG/1 ML VIAL IV PRN (12:00)
[2021-11-13] MEDS: DIAZEPAM 5 MG TABLET PO SCH ×3 (12:10→20:26)
[2021-11-13] MEDS ORDERED: METOPROLOL TARTRATE 5 MG/5 ML VIAL IV ONE (13:41)
[2021-11-13] MEDS: amLODIPine 5 MG TABLET PO SCH (15:21)
[2021-11-13] MEDS: METOPROLOL TARTRATE 5 MG/5 ML VIAL IV PRN (23:11)
[2021-11-14] MEDS: SODIUM CHLORIDE 0.9% 1,000 ML IV SCH ×3 (00:55→21:18)
[2021-11-14] MEDS: INSULIN LISPRO 100 UNIT/ML SUBCUT SCH ×4 (01:03→18:47)
[2021-11-14] MEDS ORDERED: hydrALAZINE 20 MG/1 ML VIAL IV ONE (01:10)
[2021-11-14 03:31] LABS: Arterial Base Excess iSTAT -6 MMOL/L (-2.5-2.5); Arterial O2 Saturation iSTAT 90 % (95-100); Arterial PCO2 iSTAT 29 MM HG (35-48); Arterial PO2 iSTAT 58 MM HG (80-95); Arterial Total CO2 iSTAT 19 MMO/L (23-27); Arterial pH iSTAT 7.398 (7.35-7.45)
[2021-11-14 04:37] LABS: Basophils # 0.1 10*3/uL (0.0-0.2); Basophils % 0.4 % (0.0-0.8); Eosinophils # 0.1 10*3/uL (0.0-0.87); Eosinophils % 0.2 % (0.00-10.9); Hematocrit 39.6 VOL% (35.7-47.0); Hemoglobin 12.6 GM/DL (12.0-16.0); Immature Granulocytes % 1.4 %; Immature Granulocytes Absolute 0.36 #; Lymphocytes # 1.4 10*3/uL (1.4-4.0); Lymphocytes % 5.4 % (21.3-54.2); Mean Corpuscular HGB Conc 31.8 GM/DL (32-36); Mean Corpuscular Volume 95.9 FL (87-102); Mean Platelet Volume 11.3 FL (9.6-12.0); Monocytes # 2.2 10*3/uL (0.11-0.8); Monocytes % 8.7 % (1.7-12.7); Neutrophils % 83.9 % (38.7-73.9); Platelet Count 245 T/CUMM (130-400); Red Blood Count 4.13 MC/CUMM (3.8-5.5); Red Cell Distribution Width 15.6 % (9.3-17.3); White Blood Count 25.4 T/CUMM (4-12)
[2021-11-14 04:54] LABS: Alanine Aminotransferase 44 U/L (13-56); Alkaline Phosphatase 104 U/L (45-117); Aspartate Amino Transferase 33 U/L (0-37); Bilirubin,Total < 0.39 MG/DL (0.20-1.00); Blood Urea Nitrogen 23 MG/DL (7-18); Calcium 8.5 MG/DL (8.5-10.1); Carbon Dioxide 19 MMOL/L (21-32); Chloride 118 MMOL/L (98-107); Glucose 94 MG/DL (74-106); Phosphorous 2.6 MG/DL (2.5-4.9); Potassium 4.2 MMOL/L (3.5-5.1); Sodium 143 MMOL/L (136-145); Total Protein 5.3 G/DL (6.4-8.2)
[2021-11-14 05:07] LABS: Band Neutrophils 1 % (0-10); Lymphocytes 7 % (20-55); Total Cells Counted 100
[2021-11-14] MEDS: PANTOPRAZOLE 40 MG VIAL IV SCH (08:31)
[2021-11-14] MEDS: ENOXAPARIN 40 MG/0.4 ML SYRINGE SUBCUT SCH (08:31)
[2021-11-14] MEDS: amLODIPine 5 MG TABLET PO SCH (08:32)
[2021-11-14] MEDS: DIAZEPAM 5 MG TABLET PO SCH ×3 (08:32→20:46)
[2021-11-14] MEDS ORDERED: FROVATRIPTAN PO PRN (09:14)
[2021-11-14] MEDS ORDERED: levETIRAcetam 500 MG TABLET PO SCH (09:30)
[2021-11-14] MEDS: METOPROLOL TARTRATE 25 MG TABLET PO SCH ×2 (09:43→20:46)
[2021-11-14 10:42] LABS: Arterial Base Excess iSTAT -7 MMOL/L (-2.5-2.5); Arterial Bicarbonate iSTAT 17.2 MMOL/L (20-26); Arterial O2 Saturation iSTAT 98 % (95-100); Arterial PCO2 iSTAT 31 MM HG (35-48); Arterial PO2 iSTAT 114 MM HG (80-95); Arterial Total CO2 iSTAT 18 MMO/L (23-27); Arterial pH iSTAT 7.353 (7.35-7.45)
[2021-11-14] MEDS: ALBUTEROL/IPRATROPIUM 3 ML NEB RESP TX SCH ×2 (13:50→19:15)
[2021-11-14] MEDS: DICLOFENAC 1% GEL 100 GM TUBE TOP SCH ×3 (14:20→21:17)
[2021-11-14] MEDS: GABAPENTIN 300 MG CAPSULE PO SCH ×2 (16:24→20:46)
[2021-11-14] MEDS: MIRTAZAPINE 15 MG TABLET PO SCH (20:46)
[2021-11-14] MEDS: MEGESTROL 40 MG TABLET PO SCH (20:46)
[2021-11-14] MEDS: busPIRone 5 MG TABLET PO SCH (20:47)
[2021-11-14] MEDS ORDERED: DIVALPROEX 250 MG TABLET PO SCH (21:00)
[2021-11-15] MEDS: INSULIN LISPRO 100 UNIT/ML SUBCUT SCH ×4 (00:27→17:46)
[2021-11-15 03:31] LABS: ABG Base Excess -6.5 MMOL/L (-2.5-2.5); ABG Oxygen Saturation 91.3 % (95-100); ABG PH 7.502 (7.35-7.45); ABG PO2 54.6 MM HG (80-95); ABG TCO2 13.2 MMOL/L (23-27)
[2021-11-15 03:33] LABS: ABG PCO2 18.9 MM HG (35-48)
[2021-11-15 04:42] LABS: Basophils # 0.2 10*3/uL (0.0-0.2); Basophils % 0.5 % (0.0-0.8); Eosinophils # 0.2 10*3/uL (0.0-0.87); Eosinophils % 0.5 % (0.00-10.9); Hematocrit 40.2 VOL% (35.7-47.0); Hemoglobin 12.9 GM/DL (12.0-16.0); Immature Granulocytes % 1.9 %; Immature Granulocytes Absolute 0.61 #; Lymphocytes # 1.6 10*3/uL (1.4-4.0); Lymphocytes % 4.8 % (21.3-54.2); Mean Corpuscular HGB Conc 32.1 GM/DL (32-36); Mean Corpuscular Volume 94.8 FL (87-102); Mean Platelet Volume 11.7 FL (9.6-12.0); Monocytes # 1.2 10*3/uL (0.11-0.8); Monocytes % 3.6 % (1.7-12.7); Neutrophils % 88.7 % (38.7-73.9); Platelet Count 267 T/CUMM (130-400); Red Blood Count 4.24 MC/CUMM (3.8-5.5); Red Cell Distribution Width 15.9 % (9.3-17.3); White Blood Count 32.7 T/CUMM (4-12)
[2021-11-15 05:04] LABS: Band Neutrophils 2 % (0-10); Lymphocytes 3 % (20-55); Platelet Estimate Adequate; Total Cells Counted 100
[2021-11-15 05:05] LABS: Albumin 2.1 G/DL (3.4-5.0); Bilirubin,Total 0.6 MG/DL (0.20-1.00); Osmolality,Calculated 288.7 MOS/KG (273-304)
[2021-11-15] MEDS: ALBUTEROL/IPRATROPIUM 3 ML NEB RESP TX SCH ×4 (07:17→19:01)
[2021-11-15] MEDS ORDERED: SODIUM BICARBONATE 50 MEQ/50 ML VIAL IV ONE (07:29)
[2021-11-15] MEDS ORDERED: MAGNESIUM SULF RIDER 2 GM/50 ML PREMIX IV ONE (07:31)
[2021-11-15] MEDS: SODIUM CHLORIDE 0.9% 1,000 ML IV SCH ×3 (07:52→21:07)
[2021-11-15] MEDS ORDERED: POTASSIUM PHOSPHATE 30 MMOL in SODIUM CHLORIDE 0.9% 250 ML IV ONE (08:00)
[2021-11-15] MEDS: DIAZEPAM 5 MG TABLET PO SCH ×3 (08:23→20:30)
[2021-11-15] MEDS: amLODIPine 5 MG TABLET PO SCH (08:23)
[2021-11-15] MEDS: DESVENLAFAXINE 50 MG TABLET PO SCH (08:23)
[2021-11-15] MEDS: GABAPENTIN 300 MG CAPSULE PO SCH ×3 (08:23→20:30)
[2021-11-15] MEDS: DICLOFENAC 1% GEL 100 GM TUBE TOP SCH ×4 (08:23→23:21)
[2021-11-15] MEDS: MEGESTROL 40 MG TABLET PO SCH ×2 (08:23→20:30)
[2021-11-15] MEDS: METOPROLOL TARTRATE 25 MG TABLET PO SCH ×2 (08:23→20:30)
[2021-11-15] MEDS: busPIRone 5 MG TABLET PO SCH ×2 (08:23→20:29)
[2021-11-15] MEDS: ENOXAPARIN 40 MG/0.4 ML SYRINGE SUBCUT SCH (08:24)
[2021-11-15] MEDS: PANTOPRAZOLE 40 MG VIAL IV SCH (08:24)
[2021-11-15 13:00] LABS: Arterial Base Excess iSTAT -7 MMOL/L (-2.5-2.5); Arterial Bicarbonate iSTAT 15.7 MMOL/L (20-26); Arterial O2 Saturation iSTAT 94 % (95-100); Arterial PCO2 iSTAT 23 MM HG (35-48); Arterial PO2 iSTAT 65 MM HG (80-95); Arterial Total CO2 iSTAT 16 MMO/L (23-27); Arterial pH iSTAT 7.449 (7.35-7.45)
[2021-11-15] MEDS: hydrALAZINE 20 MG/1 ML VIAL IV PRN (17:40)
[2021-11-15] MEDS: MIRTAZAPINE 15 MG TABLET PO SCH (20:30)
[2021-11-16] MEDS: ALBUTEROL/IPRATROPIUM 3 ML NEB RESP TX SCH ×4 (00:31→19:57)
[2021-11-16 03:55] LABS: ABG Base Excess -5.6 MMOL/L (-2.5-2.5); ABG HCO3 19.7 MMOL/L (20-26); ABG Oxygen Saturation 91.7 % (95-100); ABG PCO2 24.2 MM HG (35-48); ABG PH 7.446 (7.35-7.45); ABG PO2 62.3 MM HG (80-95); ABG TCO2 14.4 MMOL/L (23-27)
[2021-11-16] MEDS: hydrALAZINE 20 MG/1 ML VIAL IV PRN (04:03)
[2021-11-16 04:27] LABS: Basophils # 0.1 10*3/uL (0.0-0.2); Basophils % 0.4 % (0.0-0.8); Eosinophils # 0.1 10*3/uL (0.0-0.87); Eosinophils % 0.2 % (0.00-10.9); Hemoglobin 12.5 GM/DL (12.0-16.0); Immature Granulocytes % 2.8 %; Lymphocytes # 1.7 10*3/uL (1.4-4.0); Mean Corpuscular HGB Conc 32.9 GM/DL (32-36); Mean Corpuscular Volume 92.2 FL (87-102); Mean Platelet Volume 11.4 FL (9.6-12.0); Monocytes # 1.7 10*3/uL (0.11-0.8); Monocytes % 5.8 % (1.7-12.7); Neutrophils % 84.8 % (38.7-73.9); Platelet Count 258 T/CUMM (130-400); Red Blood Count 4.12 MC/CUMM (3.8-5.5); Red Cell Distribution Width 15.8 % (9.3-17.3); White Blood Count 28.4 T/CUMM (4-12)
[2021-11-16 04:45] LABS: Albumin 1.9 G/DL (3.4-5.0); Bilirubin,Total 0.5 MG/DL (0.20-1.00); Calcium 8.6 MG/DL (8.5-10.1); Osmolality,Calculated 284.1 MOS/KG (273-304); Phosphorous 3.2 MG/DL (2.5-4.9); Potassium 4.1 MMOL/L (3.5-5.1); Total Protein 5.9 G/DL (6.4-8.2)
[2021-11-16 04:46] LABS: Band Neutrophils 1 % (0-10); Eosinophils 1 % (0-10); Lymphocytes 3 % (20-55); Platelet Estimate Adequate; Total Cells Counted 100
[2021-11-16] MEDS: SODIUM CHLORIDE 0.9% 1,000 ML IV SCH ×3 (05:31→12:14)
[2021-11-16] MEDS: METOPROLOL TARTRATE 5 MG/5 ML VIAL IV PRN ×2 (05:54→16:08)
[2021-11-16] MEDS: INSULIN LISPRO 100 UNIT/ML SUBCUT SCH ×4 (06:11→17:02)
[2021-11-16] MEDS ORDERED: SODIUM BICARBONATE 50 MEQ/50 ML VIAL IV ONE (07:51)
[2021-11-16] MEDS: ENOXAPARIN 40 MG/0.4 ML SYRINGE SUBCUT SCH (08:27)
[2021-11-16] MEDS: PANTOPRAZOLE 40 MG VIAL IV SCH (08:28)
[2021-11-16] MEDS: DESVENLAFAXINE 50 MG TABLET PO SCH (08:28)
[2021-11-16] MEDS: MEGESTROL 40 MG TABLET PO SCH ×2 (08:28→21:16)
[2021-11-16] MEDS: DIAZEPAM 5 MG TABLET PO SCH ×3 (08:29→21:16)
[2021-11-16] MEDS: busPIRone 5 MG TABLET PO SCH ×2 (08:29→21:17)
[2021-11-16] MEDS: METOPROLOL TARTRATE 25 MG TABLET PO SCH ×2 (08:29→21:16)
[2021-11-16] MEDS: GABAPENTIN 300 MG CAPSULE PO SCH ×3 (08:29→21:16)
[2021-11-16] MEDS: DICLOFENAC 1% GEL 100 GM TUBE TOP SCH ×5 (08:29→21:21)
[2021-11-16] MEDS: amLODIPine 5 MG TABLET PO SCH (08:29)
[2021-11-16] MEDS: PIPERACILLIN/TAZOBACTAM 3,375 MG in SODIUM CHLORIDE 0.9% 100 ML IV SCH ×2 (13:39→21:50)
[2021-11-16] MEDS: MIRTAZAPINE 15 MG TABLET PO SCH (21:16)
[2021-11-17] MEDS: hydrALAZINE 20 MG/1 ML VIAL IV PRN (00:27)
[2021-11-17] MEDS: INSULIN LISPRO 100 UNIT/ML SUBCUT SCH ×4 (00:44→17:01)
[2021-11-17] MEDS: ALBUTEROL/IPRATROPIUM 3 ML NEB RESP TX SCH ×4 (01:10→19:30)
[2021-11-17 04:52] LABS: ABG Base Excess -3.2 MMOL/L (-2.5-2.5); ABG HCO3 21.7 MMOL/L (20-26); ABG Oxygen Saturation 94.5 % (95-100); ABG PCO2 27.6 MM HG (35-48); ABG PH 7.456 (7.35-7.45); ABG PO2 73.3 MM HG (80-95); ABG TCO2 17.2 MMOL/L (23-27)
[2021-11-17 06:22] LABS: Basophils # 0.1 10*3/uL (0.0-0.2); Basophils % 0.5 % (0.0-0.8); Eosinophils # 0.1 10*3/uL (0.0-0.87); Eosinophils % 0.8 % (0.00-10.9); Hematocrit 34.3 VOL% (35.7-47.0); Hemoglobin 11.2 GM/DL (12.0-16.0); Immature Granulocytes % 3.5 %; Immature Granulocytes Absolute 0.66 #; Lymphocytes # 1.6 10*3/uL (1.4-4.0); Lymphocytes % 8.6 % (21.3-54.2); Mean Corpuscular HGB Conc 32.7 GM/DL (32-36); Mean Corpuscular Volume 92.5 FL (87-102); Monocytes # 1.4 10*3/uL (0.11-0.8); Monocytes % 7.7 % (1.7-12.7); Neutrophils % 78.9 % (38.7-73.9); Platelet Count 244 T/CUMM (130-400); Red Blood Count 3.71 MC/CUMM (3.8-5.5); Red Cell Distribution Width 15.6 % (9.3-17.3); White Blood Count 18.6 T/CUMM (4-12)
[2021-11-17] MEDS: PIPERACILLIN/TAZOBACTAM 3,375 MG in SODIUM CHLORIDE 0.9% 100 ML IV SCH ×3 (06:37→22:27)
[2021-11-17 06:39] LABS: Albumin 1.6 G/DL (3.4-5.0); Bilirubin,Total 0.4 MG/DL (0.20-1.00); Calcium 8.1 MG/DL (8.5-10.1); Potassium 3.7 MMOL/L (3.5-5.1); Total Protein 5.2 G/DL (6.4-8.2)
[2021-11-17 06:44] LABS: Eosinophils 2 % (0-10); Lymphocytes 6 % (20-55); Platelet Estimate Adequate; Total Cells Counted 100
[2021-11-17] MEDS: SODIUM CHLORIDE 0.9% 1,000 ML IV SCH ×4 (08:02→17:36)
[2021-11-17] MEDS ORDERED: MAGNESIUM SULF RIDER 2 GM/50 ML PREMIX IV ONE (09:00)
[2021-11-17] MEDS: DESVENLAFAXINE 50 MG TABLET PO SCH (09:22)
[2021-11-17] MEDS: MEGESTROL 40 MG TABLET PO SCH ×2 (09:22→20:30)
[2021-11-17] MEDS: busPIRone 5 MG TABLET PO SCH ×2 (09:22→20:29)
[2021-11-17] MEDS: DIAZEPAM 5 MG TABLET PO SCH ×3 (09:22→20:30)
[2021-11-17] MEDS: amLODIPine 5 MG TABLET PO SCH (09:22)
[2021-11-17] MEDS: METOPROLOL TARTRATE 25 MG TABLET PO SCH ×2 (09:22→20:29)
[2021-11-17] MEDS: PANTOPRAZOLE 40 MG VIAL IV SCH (09:22)
[2021-11-17] MEDS: GABAPENTIN 300 MG CAPSULE PO SCH ×3 (09:22→20:29)
[2021-11-17] MEDS: ENOXAPARIN 40 MG/0.4 ML SYRINGE SUBCUT SCH (09:23)
[2021-11-17] MEDS: DICLOFENAC 1% GEL 100 GM TUBE TOP SCH ×4 (09:27→20:28)
[2021-11-17] MEDS: ACETAMINOPHEN 325 MG TABLET PO PRN (20:29)
[2021-11-17] MEDS: MIRTAZAPINE 15 MG TABLET PO SCH (20:29)
[2021-11-18] MEDS: ALBUTEROL/IPRATROPIUM 3 ML NEB RESP TX SCH ×4 (01:00→19:15)
[2021-11-18] MEDS: INSULIN LISPRO 100 UNIT/ML SUBCUT SCH ×4 (02:01→18:43)
[2021-11-18 04:02] LABS: ABG Base Excess -3.8 MMOL/L (-2.5-2.5); ABG HCO3 21.2 MMOL/L (20-26); ABG Oxygen Saturation 95.3 % (95-100); ABG PCO2 30.3 MM HG (35-48); ABG PO2 75.3 MM HG (80-95); ABG TCO2 17.6 MMOL/L (23-27)
[2021-11-18 05:40] LABS: Basophils # 0.1 10*3/uL (0.0-0.2); Basophils % 0.7 % (0.0-0.8); Eosinophils # 0.2 10*3/uL (0.0-0.87); Eosinophils % 1.8 % (0.00-10.9); Hematocrit 33.5 VOL% (35.7-47.0); Hemoglobin 10.9 GM/DL (12.0-16.0); Immature Granulocytes % 5.1 %; Immature Granulocytes Absolute 0.55 #; Lymphocytes # 1.4 10*3/uL (1.4-4.0); Lymphocytes % 13.3 % (21.3-54.2); Mean Corpuscular HGB Conc 32.5 GM/DL (32-36); Mean Corpuscular Volume 92.5 FL (87-102); Mean Platelet Volume 11.7 FL (9.6-12.0); Monocytes # 1.1 10*3/uL (0.11-0.8); Monocytes % 10.4 % (1.7-12.7); Neutrophils % 68.7 % (38.7-73.9); Platelet Count 221 T/CUMM (130-400); Red Blood Count 3.62 MC/CUMM (3.8-5.5); Red Cell Distribution Width 15.4 % (9.3-17.3); White Blood Count 10.8 T/CUMM (4-12)
[2021-11-18 05:56] LABS: Calcium 8.9 MG/DL (8.5-10.1); Osmolality,Calculated 281.3 MOS/KG (273-304); Potassium 3.8 MMOL/L (3.5-5.1)
[2021-11-18 06:06] LABS: Eosinophils 2 % (0-10); Lymphocytes 16 % (20-55); Metamyelocytes 1 %; Myelocytes 1 %; Total Cells Counted 100
[2021-11-18 06:07] LABS: Acanthocytes Few; Microcytosis Slight
[2021-11-18] MEDS: PIPERACILLIN/TAZOBACTAM 3,375 MG in SODIUM CHLORIDE 0.9% 100 ML IV SCH ×2 (06:15→14:40)
[2021-11-18] MEDS: ENOXAPARIN 40 MG/0.4 ML SYRINGE SUBCUT SCH (09:06)
[2021-11-18] MEDS: METOPROLOL TARTRATE 25 MG TABLET PO SCH ×2 (09:06→21:34)
[2021-11-18] MEDS: PANTOPRAZOLE 40 MG VIAL IV SCH (09:06)
[2021-11-18] MEDS: busPIRone 5 MG TABLET PO SCH ×2 (09:06→21:34)
[2021-11-18] MEDS: DIAZEPAM 5 MG TABLET PO SCH ×3 (09:07→21:34)
[2021-11-18] MEDS: DESVENLAFAXINE 50 MG TABLET PO SCH (09:07)
[2021-11-18] MEDS: GABAPENTIN 300 MG CAPSULE PO SCH ×3 (09:07→21:34)
[2021-11-18] MEDS: MEGESTROL 40 MG TABLET PO SCH ×2 (09:07→21:34)
[2021-11-18] MEDS: amLODIPine 5 MG TABLET PO SCH (09:07)
[2021-11-18] MEDS: DICLOFENAC 1% GEL 100 GM TUBE TOP SCH ×4 (09:08→21:35)
[2021-11-18] MEDS: lisinopriL 20 MG TABLET PO SCH (14:40)
[2021-11-18] MEDS: SODIUM CHLORIDE 0.9% 1,000 ML IV SCH ×2 (15:28→18:42)
[2021-11-18] MEDS: ACETAMINOPHEN 325 MG TABLET PO PRN (18:42)
[2021-11-18] MEDS: MIRTAZAPINE 15 MG TABLET PO SCH (21:34)
[2021-11-18] MEDS: AMOXICILLIN/CLAV 875 MG TABLET PO SCH (21:35)
[2021-11-19] MEDS: INSULIN LISPRO 100 UNIT/ML SUBCUT SCH ×3 (01:05→12:21)
[2021-11-19 03:52] LABS: Arterial Base Excess iSTAT -4 MMOL/L (-2.5-2.5); Arterial Bicarbonate iSTAT 19.7 MMOL/L (20-26); Arterial O2 Saturation iSTAT 95 % (95-100); Arterial PCO2 iSTAT 30 MM HG (35-48); Arterial PO2 iSTAT 72 MM HG (80-95); Arterial Total CO2 iSTAT 21 MMO/L (23-27); Arterial pH iSTAT 7.425 (7.35-7.45)
[2021-11-19] MEDS: SODIUM CHLORIDE 0.9% 1,000 ML IV SCH (05:31)
[2021-11-19 06:17] LABS: Basophils # 0.1 10*3/uL (0.0-0.2); Basophils % 0.6 % (0.0-0.8); Eosinophils # 0.2 10*3/uL (0.0-0.87); Eosinophils % 1.8 % (0.00-10.9); Hematocrit 32.1 VOL% (35.7-47.0); Hemoglobin 10.3 GM/DL (12.0-16.0); Immature Granulocytes % 5.7 %; Immature Granulocytes Absolute 0.64 #; Lymphocytes # 1.5 10*3/uL (1.4-4.0); Lymphocytes % 13.2 % (21.3-54.2); Mean Corpuscular HGB Conc 32.1 GM/DL (32-36); Mean Corpuscular Volume 92.5 FL (87-102); Mean Platelet Volume 11.8 FL (9.6-12.0); Monocytes % 9.2 % (1.7-12.7); Neutrophils % 69.5 % (38.7-73.9); Platelet Count 221 T/CUMM (130-400); Red Blood Count 3.47 MC/CUMM (3.8-5.5); Red Cell Distribution Width 15.5 % (9.3-17.3); White Blood Count 11.3 T/CUMM (4-12)
[2021-11-19 06:30] LABS: Calcium 8.5 MG/DL (8.5-10.1); Osmolality,Calculated 282.1 MOS/KG (273-304); Potassium 3.5 MMOL/L (3.5-5.1)
[2021-11-19 06:41] LABS: Band Neutrophils 2 % (0-10); Eosinophils 3 % (0-10); Lymphocytes 14 % (20-55); Metamyelocytes 2 %; Myelocytes 1 %; Total Cells Counted 100
[2021-11-19 06:42] LABS: Acanthocytes Few; Microcytosis Slight; Platelet Estimate Normal
[2021-11-19] MEDS: ALBUTEROL/IPRATROPIUM 3 ML NEB RESP TX SCH ×3 (07:45→13:48)
[2021-11-19] MEDS: DESVENLAFAXINE 50 MG TABLET PO SCH (08:59)
[2021-11-19] MEDS: AMOXICILLIN/CLAV 875 MG TABLET PO SCH (08:59)
[2021-11-19] MEDS: lisinopriL 20 MG TABLET PO SCH (08:59)
[2021-11-19] MEDS: amLODIPine 5 MG TABLET PO SCH (08:59)
[2021-11-19] MEDS: MEGESTROL 40 MG TABLET PO SCH (08:59)
[2021-11-19] MEDS: DIAZEPAM 5 MG TABLET PO SCH ×2 (08:59→14:35)
[2021-11-19] MEDS: GABAPENTIN 300 MG CAPSULE PO SCH ×2 (08:59→14:35)
[2021-11-19] MEDS: busPIRone 5 MG TABLET PO SCH (09:00)
[2021-11-19] MEDS ORDERED: levETIRAcetam 250 MG TABLET PO SCH (09:00)
[2021-11-19] MEDS: ENOXAPARIN 40 MG/0.4 ML SYRINGE SUBCUT SCH (09:00)
[2021-11-19] MEDS: METOPROLOL TARTRATE 25 MG TABLET PO SCH (09:00)
[2021-11-19] MEDS: DICLOFENAC 1% GEL 100 GM TUBE TOP SCH ×2 (09:06→12:50)
[2021-11-19] MEDS ORDERED: cloNIDine 0.1 MG TABLET PO SCH (15:00)
[2021-11-19 15:41] VITALS: BP 149/74
[2021-11-20] MEDS ORDERED: PANTOPRAZOLE 40 MG TABLET PO SCH (06:30)
== END 2021-11-19 16:05 | disposition home health service (06) | DRG 208 ==
LOC: N.ED 05:17 → SUATTDRO 08:19 → N.EDINP 08:19 → N.CC 08:37 → N.5E 11-16 17:11
PROVIDERS: ADMIT Internal Medicine; ATTEND Internal Medicine

== ENCOUNTER 2022-02-19 21:14 | Observation (INO) ==
[2022-02-19] MEDS ORDERED: levETIRAcetam 500 MG/5 ML VIAL IV ONE (21:17)
[2022-02-19] MEDS ORDERED: DIAZEPAM 10 MG/2 ML SYRINGE ONE (21:18)
[2022-02-19] MEDS ORDERED: SODIUM CHLORIDE 0.9% 1,000 ML IV STA (21:32)
[2022-02-19] MEDS ORDERED: DIAZEPAM 10 MG/2 ML SYRINGE IV STA (21:32)
[2022-02-19] MEDS ORDERED: hydrALAZINE 20 MG/1 ML VIAL IV STA (21:32)
[2022-02-19] MEDS ORDERED: LABETALOL 20 MG/4 ML SYRINGE IV ONE (21:32)
[2022-02-19 21:42] LABS: Basophils # 0.2 10*3/uL (0.0-0.2); Basophils % 0.8 % (0.0-0.8); Eosinophils # 0.1 10*3/uL (0.0-0.87); Eosinophils % 0.5 % (0.00-10.9); Hematocrit 43.5 VOL% (35.7-47.0); Hemoglobin 13.3 GM/DL (12.0-16.0); Immature Granulocytes % 0.9 %; Immature Granulocytes Absolute 0.19 #; Lymphocytes # 3.9 10*3/uL (1.4-4.0); Lymphocytes % 18.5 % (21.3-54.2); Mean Corpuscular HGB Conc 30.6 GM/DL (32-36); Mean Corpuscular Volume 100.5 FL (87-102); Mean Platelet Volume 11.3 FL (9.6-12.0); Monocytes # 1.1 10*3/uL (0.11-0.8); Monocytes % 5.2 % (1.7-12.7); Neutrophils % 74.1 % (38.7-73.9); Platelet Count 457 T/CUMM (130-400); Red Blood Count 4.33 MC/CUMM (3.8-5.5); Red Cell Distribution Width 17.6 % (9.3-17.3); White Blood Count 20.9 T/CUMM (4-12)
[2022-02-19 22:09] LABS: Lymphocytes 16 % (20-55); Total Cells Counted 100
[2022-02-19 22:10] LABS: Platelet Estimate Increased
[2022-02-19 22:18] LABS: Alanine Aminotransferase 25 U/L (13-56); Albumin 3.6 G/DL (3.4-5.0); Alkaline Phosphatase 130 U/L (45-117); Aspartate Amino Transferase 18 U/L (0-37); Bilirubin,Total < 0.39 MG/DL (0.20-1.00); Blood Urea Nitrogen 20 MG/DL (7-18); Calcium 10.3 MG/DL (8.5-10.1); Carbon Dioxide 14 MMOL/L (21-32); Chloride 110 MMOL/L (98-107); Glucose 136 MG/DL (74-106); Osmolality,Calculated 281.5 MOS/KG (273-304); Potassium 5.2 MMOL/L (3.5-5.1); Sodium 139 MMOL/L (136-145); Total Protein 7.8 G/DL (6.4-8.2)
[2022-02-19 22:35] LABS: INR 0.9; PT Patient Result 10.4 SECS (10.1-12.1)
[2022-02-19 22:55] LABS: Bilirubin,Urine Negative (Negative); Blood, Urine Negative (Negative); Glucose,Urine (UA) Negative (Negative); Hyaline Casts,Urine 1 /LPF (0-3); Ketones,Urine Negative (Negative); Nitrite,Urine Negative (Negative); Protein,Urine Trace mg/dL (Negative); RBC,Urine <1 /HPF (0-4); Squamous Epithelial Cell,Urine Occasional /HPF (0-10); Urine Appearance Clear (Clear); Urine Color Yellow (Yellow); Urine Specific Gravity 1.015 (1.001-1.035); Urine Urobilinogen 0.2 eU/dL (<2.0); Urine pH 5.5 (4.5-8.0)
[2022-02-19 23:26] LABS: Barbiturates Screen,Urine Negative (Negative); Benzodiazepines Screen,Urine Positive (Negative); Cannabinoid Screen,Urine Negative (Negative); Opiate Screen,Urine Negative (Negative); Phencyclidine Screen,Urine Negative (Negative)
[2022-02-20] MEDS ORDERED: DIAZEPAM 10 MG/2 ML SYRINGE IV PRN (02:51)
[2022-02-20] MEDS ORDERED: ONDANSETRON 4 MG/2 ML VIAL IV PRN (02:51)
[2022-02-20] MEDS ORDERED: hydrALAZINE 20 MG/1 ML VIAL IV PRN (02:51)
[2022-02-20] MEDS ORDERED: ALBUTEROL/IPRATROPIUM 3 ML NEB RESP TX PRN (02:51)
[2022-02-20] MEDS ORDERED: GLUCAGON 1 MG VIAL IM PRN (02:51)
[2022-02-20] MEDS ORDERED: SODIUM CHLORIDE 0.9% 1,000 ML IV SCH (03:00)
[2022-02-20 05:27] LABS: Basophils # 0.1 10*3/uL (0.0-0.2); Basophils % 0.5 % (0.0-0.8); Eosinophils # 0.1 10*3/uL (0.0-0.87); Eosinophils % 0.4 % (0.00-10.9); Hematocrit 33.2 VOL% (35.7-47.0); Hemoglobin 10.4 GM/DL (12.0-16.0); Immature Granulocytes % 0.8 %; Immature Granulocytes Absolute 0.14 #; Lymphocytes # 2.1 10*3/uL (1.4-4.0); Lymphocytes % 11.5 % (21.3-54.2); Mean Corpuscular HGB Conc 31.3 GM/DL (32-36); Mean Corpuscular Volume 95.7 FL (87-102); Mean Platelet Volume 11.3 FL (9.6-12.0); Monocytes # 2.2 10*3/uL (0.11-0.8); Monocytes % 11.9 % (1.7-12.7); Neutrophils % 74.9 % (38.7-73.9); Platelet Count 313 T/CUMM (130-400); Red Blood Count 3.47 MC/CUMM (3.8-5.5); Red Cell Distribution Width 17.5 % (9.3-17.3); White Blood Count 18.4 T/CUMM (4-12)
[2022-02-20 05:46] LABS: Calcium 8.6 MG/DL (8.5-10.1); Osmolality,Calculated 282.1 MOS/KG (273-304); Potassium 3.2 MMOL/L (3.5-5.1)
[2022-02-20] MEDS: DEXTROSE 10% 250 ML BAG IV PRN ×3 (05:57→15:30)
[2022-02-20] MEDS: cloNIDine 0.1 MG TABLET PO SCH ×2 (09:36→22:09)
[2022-02-20] MEDS: PANTOPRAZOLE 40 MG TABLET PO SCH (09:37)
[2022-02-20] MEDS ORDERED: DEXTROSE 5% NACL 0.9% 1,000 ML IV SCH (12:30)
[2022-02-20] MEDS: DEXTROSE 10% 500 ML IV SCH ×2 (16:33→21:33)
[2022-02-20] MEDS: ENOXAPARIN 40 MG/0.4 ML SYRINGE SUBCUT SCH (22:09)
[2022-02-21] MEDS: DEXTROSE 10% 500 ML IV SCH ×5 (04:52→20:55)
[2022-02-21 05:09] LABS: Basophils # 0.1 10*3/uL (0.0-0.2); Basophils % 0.7 % (0.0-0.8); Eosinophils # 0.1 10*3/uL (0.0-0.87); Eosinophils % 1.3 % (0.00-10.9); Hematocrit 31.4 VOL% (35.7-47.0); Immature Granulocytes % 0.5 %; Immature Granulocytes Absolute 0.05 #; Lymphocytes # 1.6 10*3/uL (1.4-4.0); Lymphocytes % 16.3 % (21.3-54.2); Mean Corpuscular HGB Conc 31.8 GM/DL (32-36); Mean Platelet Volume 11.3 FL (9.6-12.0); Monocytes # 0.6 10*3/uL (0.11-0.8); Monocytes % 6.6 % (1.7-12.7); Neutrophils % 74.6 % (38.7-73.9); Platelet Count 301 T/CUMM (130-400); Red Blood Count 3.27 MC/CUMM (3.8-5.5); Red Cell Distribution Width 17.8 % (9.3-17.3); White Blood Count 9.5 T/CUMM (4-12)
[2022-02-21 05:30] LABS: Calcium 8.3 MG/DL (8.5-10.1); Osmolality,Calculated 280.1 MOS/KG (273-304); Potassium 2.8 MMOL/L (3.5-5.1)
[2022-02-21] MEDS: cloNIDine 0.1 MG TABLET PO SCH ×2 (08:48→20:55)
[2022-02-21] MEDS: POTASSIUM CHLORIDE 20 MEQ TABLET PO ONE ×2 (08:48→09:17)
[2022-02-21] MEDS: PANTOPRAZOLE 40 MG TABLET PO SCH (08:49)
[2022-02-21] MEDS ORDERED: POTASSIUM CHLORIDE RIDER 10 MEQ/100 ML PREMIX IV ONE (08:54)
[2022-02-21] MEDS: busPIRone 10 MG TABLET PO SCH ×2 (12:03→20:55)
[2022-02-21] MEDS: DICLOFENAC 1% GEL 100 GM TUBE TOP SCH ×3 (15:08→20:55)
[2022-02-21] MEDS: levETIRAcetam 500 MG TABLET PO SCH (20:55)
[2022-02-21] MEDS: ENOXAPARIN 40 MG/0.4 ML SYRINGE SUBCUT SCH (20:55)
[2022-02-22 05:54] LABS: Osmolality,Calculated 281.8 MOS/KG (273-304); Potassium 3.7 MMOL/L (3.5-5.1)
[2022-02-22 06:54] LABS: Basophils # 0.1 10*3/uL (0.0-0.2); Basophils % 0.7 % (0.0-0.8); Eosinophils # 0.1 10*3/uL (0.0-0.87); Eosinophils % 1.2 % (0.00-10.9); Hematocrit 31.8 VOL% (35.7-47.0); Immature Granulocytes % 0.5 %; Immature Granulocytes Absolute 0.04 #; Lymphocytes # 1.5 10*3/uL (1.4-4.0); Lymphocytes % 18.1 % (21.3-54.2); Mean Corpuscular HGB Conc 31.4 GM/DL (32-36); Mean Corpuscular Volume 95.8 FL (87-102); Mean Platelet Volume 11.7 FL (9.6-12.0); Monocytes # 0.7 10*3/uL (0.11-0.8); Neutrophils % 70.5 % (38.7-73.9); Platelet Count 275 T/CUMM (130-400); Red Blood Count 3.32 MC/CUMM (3.8-5.5); Red Cell Distribution Width 17.9 % (9.3-17.3); White Blood Count 8.2 T/CUMM (4-12)
[2022-02-22] MEDS: DEXTROSE 10% 500 ML IV SCH (07:02)
[2022-02-22] MEDS: PANTOPRAZOLE 40 MG TABLET PO SCH (08:22)
[2022-02-22] MEDS: levETIRAcetam 500 MG TABLET PO SCH (08:22)
[2022-02-22] MEDS: busPIRone 10 MG TABLET PO SCH (08:22)
[2022-02-22] MEDS: cloNIDine 0.1 MG TABLET PO SCH (08:22)
[2022-02-22 12:14] VITALS: BP 146/63
[2022-02-22] MEDS: DICLOFENAC 1% GEL 100 GM TUBE TOP SCH ×2 (15:54→15:55)
== END 2022-02-22 15:43 | disposition home or self-care (01) ==
LOC: N.ED 21:14 → N.EDINP 21:14 → SUATTDRO 02-20 02:51 → N.5E 02-20 03:47
PROVIDERS: ADMIT Internal Medicine; ATTEND Internal Medicine Geriatric Medicine

== ENCOUNTER 2022-06-15 19:09 | Inpatient (IN) ==
[2022-06-16] MEDS ORDERED: SODIUM CHLORIDE 0.9% 1,000 ML IV STA (00:35)
[2022-06-16] MEDS ORDERED: ONDANSETRON 4 MG/2 ML VIAL IV PRN (00:35)
[2022-06-16 01:20] LABS: Basophils # 0.2 10*3/uL (0.0-0.2); Basophils % 0.5 % (0.0-0.8); Eosinophils # 0.1 10*3/uL (0.0-0.87); Eosinophils % 0.3 % (0.00-10.9); Hematocrit 34.8 VOL% (35.7-47.0); Hemoglobin 10.8 GM/DL (12.0-16.0); Immature Granulocytes % 3.5 %; Immature Granulocytes Absolute 1.08 #; Lymphocytes # 1.8 10*3/uL (1.4-4.0); Lymphocytes % 5.8 % (21.3-54.2); Mean Corpuscular Volume 86.4 FL (87-102); Mean Platelet Volume 10.7 FL (9.6-12.0); Monocytes # 1.8 10*3/uL (0.11-0.8); Monocytes % 5.9 % (1.7-12.7); Platelet Count 496 T/CUMM (130-400); Red Blood Count 4.03 MC/CUMM (3.8-5.5); Red Cell Distribution Width 17.5 % (9.3-17.3); White Blood Count 31.3 T/CUMM (4-12)
[2022-06-16 01:38] LABS: Mucus,Urine Occasional /LPF (Occasional); Squamous Epithelial Cell,Urine Occasional /HPF (0-10)
[2022-06-16 01:47] LABS: Bilirubin,Urine Negative (Negative); Blood, Urine Small mg/dL (Negative); Glucose,Urine (UA) Negative (Negative); Ketones,Urine Negative (Negative); Nitrite,Urine Negative (Negative); Protein,Urine >=300 mg/dL (Negative); Urine Appearance Clear (Clear); Urine Color Yellow (Yellow); Urine Specific Gravity >= 1.030 (1.001-1.035); Urine Urobilinogen 0.2 eU/dL (<2.0)
[2022-06-16 01:58] LABS: Alanine Aminotransferase 77 U/L (13-56); Albumin 2.8 G/DL (3.4-5.0); Alkaline Phosphatase 385 U/L (45-117); Amylase 33 U/L (25-115); Aspartate Amino Transferase 27 U/L (0-37); Bilirubin,Total < 0.39 MG/DL (0.20-1.00); Blood Urea Nitrogen 18 MG/DL (7-18); Calcium 9.8 MG/DL (8.5-10.1); Carbon Dioxide 18 MMOL/L (21-32); Chloride 111 MMOL/L (98-107); Glucose 98 MG/DL (74-106); Osmolality,Calculated 274.8 MOS/KG (273-304); Potassium 3.6 MMOL/L (3.5-5.1); Sodium 137 MMOL/L (136-145); Total Protein 8.5 G/DL (6.4-8.2)
[2022-06-16 02:13] LABS: Lymphocytes 6 % (20-55); Platelet Estimate Increased; Total Cells Counted 100
[2022-06-16] MEDS ORDERED: PIPERACILLIN/TAZOBACTAM 3,375 MG in SODIUM CHLORIDE 0.9% 100 ML IV STA (02:28)
[2022-06-16] MEDS ORDERED: ACETAMINOPHEN 325 MG TABLET PO PRN (04:18)
[2022-06-16] MEDS: MORPHINE 2 MG/1 ML SYRINGE IV PRN (06:24)
[2022-06-16 06:56] LABS: Basophils # 0.1 10*3/uL (0.0-0.2); Basophils % 0.5 % (0.0-0.8); Eosinophils # 0.1 10*3/uL (0.0-0.87); Eosinophils % 0.4 % (0.00-10.9); Hematocrit 29.6 VOL% (35.7-47.0); Hemoglobin 9.1 GM/DL (12.0-16.0); Immature Granulocytes % 3.4 %; Immature Granulocytes Absolute 0.95 #; Lymphocytes # 2.1 10*3/uL (1.4-4.0); Lymphocytes % 7.4 % (21.3-54.2); Mean Corpuscular HGB Conc 30.7 GM/DL (32-36); Mean Corpuscular Volume 86.8 FL (87-102); Mean Platelet Volume 10.2 FL (9.6-12.0); Monocytes # 1.7 10*3/uL (0.11-0.8); Monocytes % 6.1 % (1.7-12.7); Neutrophils % 82.2 % (38.7-73.9); Platelet Count 408 T/CUMM (130-400); Red Blood Count 3.41 MC/CUMM (3.8-5.5); Red Cell Distribution Width 17.7 % (9.3-17.3); White Blood Count 28.3 T/CUMM (4-12)
[2022-06-16] MEDS: ALBUTEROL/IPRATROPIUM 3 ML NEB RESP TX SCH ×3 (06:58→18:08)
[2022-06-16 07:26] LABS: Alanine Aminotransferase 59 U/L (13-56); Albumin 2.3 G/DL (3.4-5.0); Alkaline Phosphatase 309 U/L (45-117); Aspartate Amino Transferase 23 U/L (0-37); Bilirubin,Total < 0.39 MG/DL (0.20-1.00); Blood Urea Nitrogen 18 MG/DL (7-18); Carbon Dioxide 17 MMOL/L (21-32); Chloride 115 MMOL/L (98-107); Glucose 102 MG/DL (74-106); Osmolality,Calculated 280.4 MOS/KG (273-304); Potassium 3.5 MMOL/L (3.5-5.1); Sodium 140 MMOL/L (136-145)
[2022-06-16 07:28] LABS: Eosinophils 1 % (0-10); Hypochromia Slight; Lymphocytes 9 % (20-55); Microcytosis Slight; Platelet Estimate Adequate; Total Cells Counted 100
[2022-06-16 07:53] LABS: % Iron Saturation 7.4 % (18-50)
[2022-06-16] MEDS: MAGNESIUM CHLORIDE 64 MG TABLET PO SCH (08:18)
[2022-06-16] MEDS: PANTOPRAZOLE 40 MG TABLET PO SCH (08:18)
[2022-06-16] MEDS: cloNIDine 0.1 MG TABLET PO SCH ×2 (08:18→21:25)
[2022-06-16] MEDS: lisinopriL 20 MG TABLET PO SCH (08:18)
[2022-06-16] MEDS: FERROUS SULFATE 325 MG TABLET PO SCH (08:19)
[2022-06-16] MEDS: MULTIVITAMIN (CENTRUM) TABLET PO SCH (08:19)
[2022-06-16] MEDS: levETIRAcetam 250 MG TABLET PO SCH ×2 (08:19→21:25)
[2022-06-16] MEDS: ENOXAPARIN 40 MG/0.4 ML SYRINGE SUBCUT SCH (08:20)
[2022-06-16] MEDS: cefTRIAXone 1,000 MG in SODIUM CHLORIDE 0.9% 100 ML IV SCH (08:55)
[2022-06-16] MEDS: AZITHROMYCIN INJ 500 MG in SODIUM CHLORIDE 0.9% 250 ML IV SCH (09:37)
[2022-06-16] MEDS: DICLOFENAC 1% GEL 100 GM TUBE TOP SCH ×4 (09:39→21:26)
[2022-06-16] MEDS: DIVALPROEX 250 MG TABLET PO SCH (09:55)
[2022-06-16] MEDS: FERRIC GLUCONATE COMPLEX 125 MG in SODIUM CHLORIDE 0.9% 100 ML IV SCH (09:55)
[2022-06-16] MEDS: SODIUM BICARB INJ 50 MEQ in DEXTROSE 5% 1,000 ML IV SCH ×2 (10:00→21:24)
[2022-06-16 18:36] LABS: Barbiturates Screen,Urine Negative (Negative); Benzodiazepines Screen,Urine Negative (Negative); Cannabinoid Screen,Urine Negative (Negative); Opiate Screen,Urine Negative (Negative); Phencyclidine Screen,Urine Negative (Negative)
[2022-06-16] MEDS: DIVALPROEX 500 MG TABLET PO SCH (21:25)
[2022-06-17] MEDS: ALBUTEROL/IPRATROPIUM 3 ML NEB RESP TX SCH ×4 (07:12→19:50)
[2022-06-17 07:55] LABS: Basophils # 0.1 10*3/uL (0.0-0.2); Basophils % 0.4 % (0.0-0.8); Eosinophils # 0.1 10*3/uL (0.0-0.87); Eosinophils % 0.6 % (0.00-10.9); Hematocrit 24.6 VOL% (35.7-47.0); Immature Granulocytes % 5.5 %; Immature Granulocytes Absolute 1.08 #; Lymphocytes # 1.2 10*3/uL (1.4-4.0); Lymphocytes % 6.2 % (21.3-54.2); Mean Corpuscular HGB Conc 32.1 GM/DL (32-36); Mean Corpuscular Volume 85.1 FL (87-102); Mean Platelet Volume 10.7 FL (9.6-12.0); Monocytes # 1.5 10*3/uL (0.11-0.8); Monocytes % 7.6 % (1.7-12.7); Neutrophils % 79.7 % (38.7-73.9); Platelet Count 374 T/CUMM (130-400); Red Blood Count 2.89 MC/CUMM (3.8-5.5); Red Cell Distribution Width 17.3 % (9.3-17.3); White Blood Count 19.6 T/CUMM (4-12)
[2022-06-17 07:57] LABS: Hemoglobin 7.9 GM/DL (12.0-16.0)
[2022-06-17 08:10] LABS: Hypochromia 1+; Lymphocytes 2 % (20-55); Microcytosis Slight; Platelet Estimate Adequate; Total Cells Counted 100
[2022-06-17 08:11] LABS: Calcium 8.2 MG/DL (8.5-10.1); Osmolality,Calculated 276.5 MOS/KG (273-304); Potassium 3.4 MMOL/L (3.5-5.1)
[2022-06-17 08:28] LABS: Alanine Aminotransferase 54 U/L (13-56); Alkaline Phosphatase 271 U/L (45-117); Aspartate Amino Transferase 27 U/L (0-37); Bilirubin,Total < 0.39 MG/DL (0.20-1.00); Blood Urea Nitrogen 13 MG/DL (7-18); Calcium 8.4 MG/DL (8.5-10.1); Carbon Dioxide 20 MMOL/L (21-32); Chloride 112 MMOL/L (98-107); Glucose 95 MG/DL (74-106); Osmolality,Calculated 276.5 MOS/KG (273-304); Potassium 3.5 MMOL/L (3.5-5.1); Sodium 139 MMOL/L (136-145); Total Protein 6.2 G/DL (6.4-8.2)
[2022-06-17] MEDS: cefTRIAXone 1,000 MG in SODIUM CHLORIDE 0.9% 100 ML IV SCH (09:15)
[2022-06-17] MEDS: DICLOFENAC 1% GEL 100 GM TUBE TOP SCH ×4 (09:16→21:30)
[2022-06-17] MEDS: lisinopriL 20 MG TABLET PO SCH (09:17)
[2022-06-17] MEDS: levETIRAcetam 250 MG TABLET PO SCH ×2 (09:17→21:29)
[2022-06-17] MEDS: DIVALPROEX 250 MG TABLET PO SCH (09:17)
[2022-06-17] MEDS: PANTOPRAZOLE 40 MG TABLET PO SCH (09:18)
[2022-06-17] MEDS: MAGNESIUM CHLORIDE 64 MG TABLET PO SCH (09:18)
[2022-06-17] MEDS: MULTIVITAMIN (CENTRUM) TABLET PO SCH (09:18)
[2022-06-17] MEDS: FERROUS SULFATE 325 MG TABLET PO SCH (09:18)
[2022-06-17] MEDS: cloNIDine 0.1 MG TABLET PO SCH ×2 (09:18→21:28)
[2022-06-17] MEDS: FERRIC GLUCONATE COMPLEX 125 MG in SODIUM CHLORIDE 0.9% 100 ML IV SCH (09:45)
[2022-06-17] MEDS: ENOXAPARIN 40 MG/0.4 ML SYRINGE SUBCUT SCH (09:46)
[2022-06-17] MEDS: AZITHROMYCIN INJ 500 MG in SODIUM CHLORIDE 0.9% 250 ML IV SCH (09:59)
[2022-06-17] MEDS: SODIUM BICARB INJ 50 MEQ in DEXTROSE 5% 1,000 ML IV SCH ×2 (11:22→22:00)
[2022-06-17] MEDS: MORPHINE 2 MG/1 ML SYRINGE IV PRN (21:29)
[2022-06-17] MEDS: DIVALPROEX 500 MG TABLET PO SCH (21:30)
[2022-06-18] MEDS: ALBUTEROL/IPRATROPIUM 3 ML NEB RESP TX SCH ×5 (00:21→19:37)
[2022-06-18 06:04] LABS: Basophils # 0.1 10*3/uL (0.0-0.2); Basophils % 0.4 % (0.0-0.8); Eosinophils # 0.1 10*3/uL (0.0-0.87); Eosinophils % 0.3 % (0.00-10.9); Hematocrit 25.1 VOL% (35.7-47.0); Hemoglobin 7.7 GM/DL (12.0-16.0); Immature Granulocytes % 11.3 %; Lymphocytes # 0.8 10*3/uL (1.4-4.0); Lymphocytes % 4.8 % (21.3-54.2); Mean Corpuscular HGB Conc 30.7 GM/DL (32-36); Mean Corpuscular Volume 85.7 FL (87-102); Mean Platelet Volume 10.7 FL (9.6-12.0); Monocytes # 1.6 10*3/uL (0.11-0.8); Monocytes % 9.9 % (1.7-12.7); NRBC # 0.03 10*3/uL; Neutrophils % 73.3 % (38.7-73.9); Platelet Count 330 T/CUMM (130-400); Red Blood Count 2.93 MC/CUMM (3.8-5.5); Red Cell Distribution Width 17.4 % (9.3-17.3)
[2022-06-18 06:16] LABS: Calcium 8.1 MG/DL (8.5-10.1); Osmolality,Calculated 275.5 MOS/KG (273-304); Potassium 3.5 MMOL/L (3.5-5.1)
[2022-06-18 06:21] LABS: Alanine Aminotransferase 43 U/L (13-56); Alkaline Phosphatase 310 U/L (45-117); Aspartate Amino Transferase 17 U/L (0-37); Bilirubin,Total < 0.39 MG/DL (0.20-1.00); Blood Urea Nitrogen 10 MG/DL (7-18); Calcium 8.1 MG/DL (8.5-10.1); Carbon Dioxide 20 MMOL/L (21-32); Chloride 109 MMOL/L (98-107); Glucose 93 MG/DL (74-106); Osmolality,Calculated 277.4 MOS/KG (273-304); Potassium 3.6 MMOL/L (3.5-5.1); Sodium 140 MMOL/L (136-145); Total Protein 5.5 G/DL (6.4-8.2)
[2022-06-18 06:31] LABS: Eosinophils 1 % (0-10); Hypochromia 1+; Lymphocytes 7 % (20-55); Microcytosis 1+; Platelet Estimate Adequate; Total Cells Counted 100
[2022-06-18] MEDS: ENOXAPARIN 40 MG/0.4 ML SYRINGE SUBCUT SCH (08:57)
[2022-06-18] MEDS: levETIRAcetam 250 MG TABLET PO SCH ×2 (08:58→21:13)
[2022-06-18] MEDS: FERROUS SULFATE 325 MG TABLET PO SCH (08:58)
[2022-06-18] MEDS: PANTOPRAZOLE 40 MG TABLET PO SCH (08:58)
[2022-06-18] MEDS: lisinopriL 20 MG TABLET PO SCH (08:59)
[2022-06-18] MEDS: DIVALPROEX 250 MG TABLET PO SCH (08:59)
[2022-06-18] MEDS: cloNIDine 0.1 MG TABLET PO SCH ×2 (08:59→21:13)
[2022-06-18] MEDS: MULTIVITAMIN (CENTRUM) TABLET PO SCH (08:59)
[2022-06-18] MEDS: MAGNESIUM CHLORIDE 64 MG TABLET PO SCH (08:59)
[2022-06-18] MEDS: DICLOFENAC 1% GEL 100 GM TUBE TOP SCH ×4 (09:01→21:14)
[2022-06-18] MEDS: cefTRIAXone 1,000 MG in SODIUM CHLORIDE 0.9% 100 ML IV SCH (09:05)
[2022-06-18] MEDS ORDERED: KETOROLAC 15 MG/1 ML VIAL IV ONE (09:26)
[2022-06-18] MEDS: FERRIC GLUCONATE COMPLEX 125 MG in SODIUM CHLORIDE 0.9% 100 ML IV SCH (10:00)
[2022-06-18] MEDS ORDERED: MAGNESIUM SULF RIDER 2 GM/50 ML PREMIX IV ONE (10:00)
[2022-06-18] MEDS: SODIUM BICARB INJ 50 MEQ in DEXTROSE 5% 1,000 ML IV SCH (10:49)
[2022-06-18] MEDS: BENZONATATE 100 MG CAPSULE PO SCH ×2 (10:55→21:13)
[2022-06-18] MEDS: AZITHROMYCIN INJ 500 MG in SODIUM CHLORIDE 0.9% 250 ML IV SCH (11:02)
[2022-06-18 12:43] LABS: Basophils # 0.1 10*3/uL (0.0-0.2); Basophils % 0.4 % (0.0-0.8); Eosinophils # 0.1 10*3/uL (0.0-0.87); Eosinophils % 0.4 % (0.00-10.9); Hematocrit 25.3 VOL% (35.7-47.0); Hemoglobin 7.9 GM/DL (12.0-16.0); Immature Granulocytes % 13.4 %; Immature Granulocytes Absolute 1.73 #; Lymphocytes % 7.8 % (21.3-54.2); Mean Corpuscular HGB Conc 31.2 GM/DL (32-36); Mean Corpuscular Volume 85.8 FL (87-102); Monocytes # 1.3 10*3/uL (0.11-0.8); Monocytes % 9.9 % (1.7-12.7); NRBC # 0.02 10*3/uL; Neutrophils % 68.1 % (38.7-73.9); Platelet Count 331 T/CUMM (130-400); Red Blood Count 2.95 MC/CUMM (3.8-5.5); Red Cell Distribution Width 17.5 % (9.3-17.3); White Blood Count 12.9 T/CUMM (4-12)
[2022-06-18 13:33] LABS: Band Neutrophils 5 % (0-10); Lymphocytes 7 % (20-55); Metamyelocytes 6 %; Myelocytes 2 %; Total Cells Counted 100
[2022-06-18 13:34] LABS: Anisocytosis Slight; Microcytosis Slight; Platelet Estimate Adequate
[2022-06-18] MEDS: DIVALPROEX 500 MG TABLET PO SCH (21:13)
[2022-06-19] MEDS: ALBUTEROL/IPRATROPIUM 3 ML NEB RESP TX SCH ×3 (00:05→15:41)
[2022-06-19 05:20] LABS: Basophils # 0.1 10*3/uL (0.0-0.2); Basophils % 0.5 % (0.0-0.8); Eosinophils % 0.2 % (0.00-10.9); Hemoglobin 8.8 GM/DL (12.0-16.0); Immature Granulocytes % 12.2 %; Immature Granulocytes Absolute 1.55 #; Lymphocytes # 0.7 10*3/uL (1.4-4.0); Lymphocytes % 5.8 % (21.3-54.2); Mean Corpuscular HGB Conc 31.4 GM/DL (32-36); Mean Corpuscular Volume 85.6 FL (87-102); Mean Platelet Volume 10.7 FL (9.6-12.0); Monocytes # 1.1 10*3/uL (0.11-0.8); Monocytes % 8.8 % (1.7-12.7); NRBC # 0.02 10*3/uL; Neutrophils % 72.5 % (38.7-73.9); Platelet Count 340 T/CUMM (130-400); Red Blood Count 3.27 MC/CUMM (3.8-5.5); Red Cell Distribution Width 17.9 % (9.3-17.3); White Blood Count 12.7 T/CUMM (4-12)
[2022-06-19 05:45] LABS: Alanine Aminotransferase 39 U/L (13-56); Alkaline Phosphatase 367 U/L (45-117); Aspartate Amino Transferase 20 U/L (0-37); Bilirubin,Total < 0.39 MG/DL (0.20-1.00); Blood Urea Nitrogen 12 MG/DL (7-18); Calcium 8.6 MG/DL (8.5-10.1); Carbon Dioxide 22 MMOL/L (21-32); Chloride 108 MMOL/L (98-107); Glucose 98 MG/DL (74-106); Osmolality,Calculated 276.5 MOS/KG (273-304); Potassium 3.9 MMOL/L (3.5-5.1); Sodium 139 MMOL/L (136-145); Total Protein 6.5 G/DL (6.4-8.2)
[2022-06-19 05:48] LABS: Band Neutrophils 2 % (0-10); Eosinophils 2 % (0-10); Hypochromia Slight; Lymphocytes 5 % (20-55); Microcytosis Slight; Platelet Estimate Adequate; Total Cells Counted 100
[2022-06-19] MEDS: ENOXAPARIN 40 MG/0.4 ML SYRINGE SUBCUT SCH (09:15)
[2022-06-19] MEDS: cefTRIAXone 1,000 MG in SODIUM CHLORIDE 0.9% 100 ML IV SCH (09:25)
[2022-06-19] MEDS: BENZONATATE 100 MG CAPSULE PO SCH (09:28)
[2022-06-19] MEDS: lisinopriL 20 MG TABLET PO SCH (09:28)
[2022-06-19] MEDS: MAGNESIUM CHLORIDE 64 MG TABLET PO SCH (09:28)
[2022-06-19] MEDS: levETIRAcetam 250 MG TABLET PO SCH (09:28)
[2022-06-19] MEDS: DIVALPROEX 250 MG TABLET PO SCH (09:28)
[2022-06-19] MEDS: cloNIDine 0.1 MG TABLET PO SCH (09:28)
[2022-06-19] MEDS: PANTOPRAZOLE 40 MG TABLET PO SCH (09:28)
[2022-06-19] MEDS: FERROUS SULFATE 325 MG TABLET PO SCH (09:29)
[2022-06-19] MEDS: MULTIVITAMIN (CENTRUM) TABLET PO SCH (09:29)
[2022-06-19] MEDS: DICLOFENAC 1% GEL 100 GM TUBE TOP SCH ×2 (09:29→14:03)
[2022-06-19] MEDS: AZITHROMYCIN INJ 500 MG in SODIUM CHLORIDE 0.9% 250 ML IV SCH (10:54)
[2022-06-19 11:47] VITALS: BP 122/60
[2022-06-19] MEDS: FERRIC GLUCONATE COMPLEX 125 MG in SODIUM CHLORIDE 0.9% 100 ML IV SCH (12:06)
[2022-06-19] MEDS: SODIUM BICARB INJ 50 MEQ in DEXTROSE 5% 1,000 ML IV SCH (14:03)
== END 2022-06-19 14:55 | disposition home or self-care (01) | DRG 193 ==
LOC: N.ED 19:09 → N.2E 06-16 04:18
PROVIDERS: ADMIT Internal Medicine; ATTEND Internal Medicine